=== PATIENT | male | born 1985 | race Caucasian/White ===

== ENCOUNTER 2022-11-26 21:12 | Observation (INO) ==
[2022-11-26] MEDS ORDERED: SODIUM CHLORIDE 0.9% 1000ML 1,000 ML IV SCH (21:30)
[2022-11-26 22:05] LABS: Basophils # (auto) 0.04 K/uL (0-0.2); Basophils % (auto) 0.5 %; Eosinophils # (auto) 0.06 K/uL (0-0.50); Eosinophils % (auto) 0.8 %; Hematocrit (blood only) 48.4 % (42.0-52.0); Hemoglobin 16.6 g/dl (14.0-18.0); Immature Granulocytes # (auto) 0.15 K/uL (0.01-0.20); Lymphocytes # (auto) 0.63 K/uL (1.2-3.4); Lymphocytes % (auto) 8.6 %; Mean Corpuscular Hemoglobin 31.2 pg (25.0-34.0); Mean Corpuscular Hgb Conc 34.3 g/dL (32.0-36.0); Mean Platelet Volume 9.9 fL (9.4-12.4); Monocytes # (auto) 0.66 K/uL (0.11-0.59); Neutrophils % (auto) 79.1 %; Platelet Count 218 K/uL (130-400); RDW Coefficient of Variation 12.2 % (11.5-14.5); RDW Standard Deviation 40.4 fL (36.4-46.3); Red Blood Count 5.32 M/uL (4.70-6.10); White Blood Count 7.34 K/ul (4.8-10.8)
[2022-11-26 22:22] LABS: Monotest Negative (Negative)
[2022-11-26 22:24] LABS: Albumin Globulin Ratio 1.1 (0.9-2); Albumin Level 3.9 gm/dl (3.4-5.0); C Reactive Protein 9.96 mg/dl (0-0.5); Calcium 8.3 mg/dl (8.6-10.3); Creatinine Clr Calc Pharmacy 110.1 ml/min; Est GFR (African American) 89.6 ml/min; Est GFR (Non-African American) 77.3 ml/min; Globulin 3.7 gm/dl (2.5-4.0); Magnesium 1.8 mg/dl (1.7-2.4); Total Protein 7.6 gm/dl (6.0-8.3)
[2022-11-26 22:26] LABS: Acetaminophen < 3 ug/ml (10-30); Salicylate < 3.0 mg/dl (3.0-30)
[2022-11-26 22:39] LABS: Amphetamines+Metham, Urine Neg (Neg); Barbiturates, Urine Neg (Neg); Benzodiazepine, Urine Neg (Neg); Cocaine, Urine Neg (Neg); MDMA (Ecstacy), Urine Neg (Neg); Methadone, Urine Neg (Neg); Opiate, Urine Neg (Neg); Phencyclidine, Urine Neg (Neg)
[2022-11-26] MEDS ORDERED: OPTIRAY 320 100ml IV ONE (22:43)
[2022-11-26 22:46] LABS: INR 1.1 (0.9-1.1); Lyme Ab IgG w/WB Rflx Negative (Negative); Partial Thromboplastin Time 29.6 Seconds (21.0-31.0); Prothrombin Time 11.9 Seconds (9.0-12.0)
[2022-11-26 22:57] LABS: Lyme Ab IgM w/WB Rflx Positive (Negative)
--- NOTE | 2022-11-26 23:01 | CT Scan Report ---
CT SCAN OF THE ABDOMEN AND PELVIS WITH IV CONTRAST CLINICAL HISTORY: Elevated hepatic transaminases. Jaundice. COMPARISON STUDY: No priors. TECHNIQUE: Following the IV administration of 95 cc of Optiray 320, CT scan of the abdomen and pelvi s is performed from the lung bases to the proximal femora. Images are reviewed in the axial, sagittal , and coronal planes. IV contrast was administered without complication. A dose lowering technique wa s utilized adhering to the principles of ALARA. CT DOSE: 1605.89 mGy.cm FINDINGS: Lung bases: The heart is normal in size and without pericardial effusion. The lung bases are clear. Liver: The contrast-enhanced liver is enlarged and heterogeneous, measuring 24.8 cm in length. Questi on mild nodularity of the hepatic surface contour. There is no intrahepatic biliary ductal dilatation . The hepatic veins and portal veins are patent. Gallbladder: Unremarkable. Spleen: The spleen is enlarged, measuring 19.7 cm in length. Pancreas: Unremarkable. Adrenal glands: Unremarkable. Kidneys: The contrast enhanced kidneys are normal in size and without hydronephrosis. The kidneys enh ance symmetrically. Abdominal vasculature: The abdominal aorta is normal in course and caliber. Bowel: There is no bowel obstruction. The appendix is not identified and reported surgically absent. Peritoneum: There is no intraperitoneal free air or abdominal ascites. There is a fat-containing umbi lical hernia. Lymphadenopathy: Prominent lymph nodes in the viviana hepatis are likely reactive. Pelvic viscera: The bladder, prostate, and seminal vesicles are normal as visualized. Skeletal structures: There are bilateral pars defects at L5 with 11 mm of anterolisthesis at L5-S1. M ild lumbosacral spondylosis is observed. No lytic or blastic lesions are seen. Soft tissues: Soft tissue induration overlies the gluteus sarita muscle bilaterally. IMPRESSION: 1. The liver is enlarged and heterogeneous. Mild nodularity of the surface contour suggests early mor phologic change of cirrhosis. 2. Splenomegaly. 3. There is no intra or extrahepatic biliary ductal dilatation 4. Soft tissue induration overlies the gluteus sarita muscle bilaterally. This could represent contu sions or possibly changes related to prior subacute injections. Correlate clinically. 5. Additional findings as above. ACT 112: Negative or not required by law. Electronically signed by: Kendall Diego M.D. 11/26/2022 10:59 PM
[2022-11-26 23:26] LABS: Appearance Urine Clear (Clear); Bacteria Urine Automated Negative (Negative); Blood Urine Negative (Negative); Color Urine Dark Yellow; Epithelial Cell Urine Auto 0-5 /lpf (0-5); Glucose Urine UA Negative (Negative); Ketones Urine 2+ (Negative); Leukocyte Esterase Urine Trace (Negative); Nitrite Urine Positive (Negative); Protein Urine 1+ (Negative); RBC Urine Automated 0-4 /hpf (0-4); Specific Gravity Urine 1.023 (1.000-1.030); Urobilinogen Urine Positive (Negative); pH Urine 5.5 (4.5-7.5)
[2022-11-26 23:34] LABS: Bilirubin Urine 2+ (Negative)
[2022-11-27] MEDS ORDERED: ACETAMINOPHEN 325 MG TAB PO STA (00:25)
[2022-11-27] MEDS ORDERED: DOXYCYCLINE HYCLATE 100 MG in DEXTROSE 5% 100 ML IV STA (00:25)
[2022-11-27] MEDS ORDERED: CEFEPIME 2,000 MG/20 ML VIAL IV STA (00:27)
[2022-11-27] MEDS ORDERED: MAGNESIUM SULFATE / D5W 1 GM/100 ML BAG IV STA (00:33)
--- NOTE | 2022-11-27 00:51 | Emergency Department Note ---
Impression & Plan Fever of unknown origin, Rhabdomyolysis, Transaminitis, Hyperbilirubinemia ED Provider Note CHIEF COMPLAINT: Elevated liver enzymes, yellow skin, fever HISTORY OF PRESENT ILLNESS: This 37-year-old male patient presents to the emergency department via private vehicle, by for evaluation of elevated liver enzymes, yellow skin, and fever. The patient states that 3 days ago, he had a generalized headache which was worse with coughing and sneezing. He states he was experiencing occasional lightheadedness and dizziness. 2 days ago, he noticed some rust colored urine which has persisted. He denies any back pain or urinary symptoms such as dysuria, urinary frequency, urinary hesitancy. The patient states he has been feeling very fatigued and sleeping more than usual. He denies any shortness of breath or chest pain, but states he noticed that his eyes were somewhat yellow over the past few days. The patient states he has had a pain up under his left rib for several weeks and was seen by his primary care provider about a month ago for the pain with no diagnosis. The patient states today, he was at urgent care and told his bilirubin was elevated, his transaminases were elevated, and he was told he had a left-sided kidney stone. The patient does admit to working out a lot. He states he works out very hard and takes "a lot of supplements". The patient states he has recently increased his weights. He denies any specific body pains or aches. He denies any nausea or vomiting. No vision changes, itchiness, weight loss. Patient denies excessive alcohol use. He states he does see a very heavily red meat diet REVIEW OF SYSTEMS: A 10 system review of systems was performed with positives and pertinent negatives listed in the history of present illness. All other systems were reviewed and are negative. ALLERGIES: Penicillin PHYSICAL EXAM: VITALS: Vitals are noted on the nurse's note and reviewed by myself. Vital signs stable. GENERAL: This is a 37-year-old male, in no acute distress, nondiaphoretic, well- developed well-nourished. SKIN: The skin was without rashes, erythema, edema, or bruising. There is no tenting of the skin. Capillary refill less than 2 seconds. HEAD: Normocephalic atraumatic. EYES: Pupils equal round and reactive to light and accommodation. Conjunctivae without injection. There is scleral icterus. Extraocular movements intact. NOSE: Patent, turbinates without inflammation or discharge. No sinus tenderness. MOUTH: Mucous membranes moist. Tonsils are not enlarged. Pharynx without erythema or exudate. Uvula midline. Airway patent. Tongue does not deviate. NECK: Supple without nuchal rigidity. No lymphadenopathy. No thyromegaly. Cervical spine is nontender. No JVD. HEART: Regular rate and rhythm without murmurs gallops or rubs. LUNGS: Clear to auscultation bilaterally without wheezes, rales or rhonchi. No retractions or accessory muscle use. ABDOMEN: Positive bowel sounds x 4. Left upper quadrant tenderness to palpation. Abdomen is otherwise soft, nontender, without masses or organomegaly. Guerin sign negative. No guarding or rebound tenderness. MUSCULOSKELETAL: No muscle atrophy, erythema, or edema noted. Full range of motion without joint tenderness in all extremities. No tenderness to palpation. Normal gait. Strength 5/5 throughout. NEURO: Patient was alert and oriented to person place and time. No focal neurological deficits. EKG, per my interpretation: Sinus tachycardia with a ventricular rate of [address] elevation or depression. No T wave inversion. 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 The monitor showed a sinus tachycardia at a ventricular rate of 106 bpm, per my interpretation. Chest x-ray. Findings: A chest x-ray was performed and revealed no pneumothorax, effusion, infiltrate, pulmonary edema, free air under the diaphragm, or wide mediastinum, per my interpretation EMERGENCY DEPARTMENT COURSE: The patient was seen and evaluated as above. IV access obtained, labs drawn. Labs reviewed by myself. No significant leukocytosis, anemia, thrombocytopenia. ESR elevated at 32. INR 1.1. Renal function without significant abnormality. Creatinine 1.18. Hepatic function with elevated transaminases, AST 196, ALT 374. Total bilirubin was elevated at 5. Total CK was elevated at 527. C-reactive protein elevated 9.96. BNP 82. Lipase 20. TSH 2.348. Urinalysis concerning for positive nitrites, bilirubin, urobilinogen, leukocyte esterase. Urine drug screen negative. Tylenol level negative. Alcohol negative. Lyme disease testing was positive for Lyme IgM. COVID-19 testing negative. Monoscreen negative. Chest x-ray and EKG completed as above. I discussed findings with the patient at bedside. I am concerned for rhabdomyolysis, transaminitis, and elevated bilirubin. CT imaging was performed and was concerning for early cirrhosis, enlarged spleen as well as indurated area on the gluteal regions bilaterally. I did examine this region and did not note any erythema, induration, or obvious etiology of his symptoms. [facility] He was hydrated in the emergency department with IV fluids. Please see hospitalist dictation regarding ongoing management care of this patient. Differential diagnosis includes cirrhosis, hepatic failure, splenomegaly, mono, viral infection, hepatitis, overdose, dehydration, rhabdomyolysis, cardiac etiology, malignancy, among others I attest that I have personally reviewed the patient's current medication list. Patient was found to have normal blood pressure on screening and does not require follow-up. The chart was completed utilizing [employer] Speech voice recognition software. Grammatical errors, random word insertions, pronoun errors, and incomplete sente nces are an occasional consequence of this system due to software limitations, ambient noise, and hardware issues. Any formal questions or concerns about the content, text, or information contained within the body of this dictation should be directly addressed to the provider for clarification. 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 Beliefs That Will Affect Care: None Current Living Situation: Spouse Current Living Situation Comment: Lives at home with and daughters Feels Safe at Home: Yes Safety Concerns: Feels Safe At This Time Assistive Devices: None Allergies Allergies Allergy/AdvReac Type Severity Reaction Status Date / Time Penicillins Allergy Intermediate Hives Verified 11/26/22 23:39 Home Meds Home Medications Medication Instructions Recorded Confirmed Optimized Folate 1,700 mcg PO DAILY 11/26/22 11/26/22 atomoxetine 18 mg capsule 18 mg PO DAILY 11/26/22 11/26/22 buspirone 10 mg tablet 10 mg PO BID PRN Anxiety 11/26/22 11/26/22 famotidine 20 mg tablet 40 mg PO DAILY PRN 11/26/22 11/26/22 HEARTBURN/INDIGESTION lysine 500 mg tablet 500 mg PO DAILY 11/26/22 11/26/22 pantoprazole 40 mg tablet,delayed 40 mg PO DAILY 11/26/22 11/26/22 release tamsulosin 0.4 mg capsule 0.4 mg PO DAILY 11/26/22 11/26/22 temazepam 30 mg capsule 30 mg PO HS 11/26/22 11/26/22 zolpidem 10 mg tablet 10 mg PO HS 11/26/22 11/26/22 Results & Data (ED) Vital Signs Vital Signs - 24 hr 11/26/22 21:15 11/26/22 22:07 11/26/22 22:08 Temperature 38.4 C H Temperature Source Oral Pulse Rate 119 H 113 H 116 H Pulse Rate from SpO2 Sensor 115 H Respiratory Rate 18 32 H Blood Pressure 124/80 Blood Pressure Mean 94 Pulse Oximetry 96 98 Oxygen Delivery Method Room Air Sepsis Recent Fever Within 48 Hours Yes Sepsis New/Unexplained Change in Mental Status No Sepsis Action Taken by Nursing No Action Required 11/26/22 22:30 11/26/22 22:30 11/26/22 23:00 Temperature Temperature Source Pulse Rate 117 H Pulse Rate from SpO2 Sensor 117 H Respiratory Rate 27 H Blood Pressure 141/82 H 140/90 Blood Pressure Mean 101 106 Pulse Oximetry 99 Oxygen Delivery Method Sepsis Recent Fever Within 48 Hours Sepsis New/Unexplained Change in Mental Status Sepsis Action Taken by Nursing 11/26/22 23:00 11/26/22 23:59 Temperature Temperature Source Pulse Rate 111 H 114 H Pulse Rate from SpO2 Sensor 111 H Respiratory Rate 30 H 20 Blood Pressure 128/72 Blood Pressure Mean 90 Pulse Oximetry 98 97 Oxygen Delivery Method Room Air Sepsis Recent Fever Within 48 Hours Sepsis New/Unexplained Change in Mental Status Sepsis Action Taken by Nursing Laboratory Data 11/26/22 21:45 11/26/22 21:45 Lab Results 11/26/22 11/26/22 11/26/22 Range/Units 21:45 21:45 21:45 WBC 7.34 (4.8-10.8) K/ul RBC 5.32 (4.70-6.10) M/uL Hgb 16.6 (14.0-18.0) g/dl Hct 48.4 (42.0-52.0) % MCV 91.0 (80.0-100.0) fL MCH 31.2 (25.0-34.0) pg MCHC 34.3 (32.0-36.0) g/dL RDW Std Deviation 40.4 (36.4-46.3) fL RDW Coeff of Marilee 12.2 (11.5-14.5) % Plt Count 218 (130-400) K/uL MPV 9.9 (9.4-12.4) fL Immature Gran % (Auto) 2.0 % Neut % (Auto) 79.1 % Lymph % (Auto) 8.6 % [place] % (Auto) 9.0 % Eos % (Auto) 0.8 % Baso % (Auto) 0.5 % Neut # (Auto) 5.80 (1.40-6.50) K/uL Lymph # (Auto) 0.63 L (1.2-3.4) K/uL [place] # (Auto) 0.66 H (0.11-0.59) K/uL Eos # (Auto) 0.06 (0-0.50) K/uL Baso # (Auto) 0.04 (0-0.2) K/uL Immature Gran # (Auto) 0.15 (0.01-0.20) K/uL ESR (0-15) mm/hr PT 11.9 (9.0-12.0) Seconds INR 1.1 (0.9-1.1) APTT 29.6 (21.0-31.0) Seconds PTT Ratio 1.0 Sodium (136-145) mmol/L Potassium (3.5-5.1) mmol/L Chloride (98-107) mmol/L Carbon Dioxide (21-32) mmol/L Anion Gap (3-11) BUN (6-23) mg/dl Creatinine (0.6-1.4) mg/dl Est Cr Clr Drug Dosing ml/min Est GFR ( Amer) ml/min Est GFR (Non-Af Amer) ml/min BUN/Creatinine Ratio (10-20) Glucose (70-99(Fasting)) mg/dl Osmolality (280-300) mOsm/kg Lactate (0.4-2.0) mmol/L Calcium (8.6-10.3) mg/dl Magnesium (1.7-2.4) mg/dl Total Bilirubin (0.2-1.0) mg/dl AST (13-39) U/L ALT (7-52) U/L Alkaline Phosphatase (34-104) U/L Total Creatine Kinase (30-223) U/L C-Reactive Protein (0-0.5) mg/dl B-Natriuretic Peptide (0-100) pg/ml Total Protein (6.0-8.3) gm/dl Albumin (3.4-5.0) gm/dl Globulin (2.5-4.0) gm/dl Albumin/Globulin Ratio (0.9-2) Lipase (11-82) U/L TSH (0.300-4.500) uIu/ml Urine Color Urine Appearance (Clear) Urine pH (4.5-7.5) Ur Specific [place] (1.000-1.030) Urine Protein (Negative) Urine Glucose (UA) (Negative) Urine Ketones (Negative) Urine Blood (Negative) Urine Nitrite (Negative) Urine Bilirubin (Negative) Urine Urobilinogen (Negative) Ur Leukocyte Esterase (Negative) Urine WBC (Auto) (0-5) /hpf Urine RBC (Auto) (0-4) /hpf U Hyaline Cast (Auto) (0-5) /lpf U Epithel Cells (Auto) (0-5) /lpf Urine Bacteria (Auto) (Negative) Urine Osmolality (500-800) mOsm/kg Ur Random Sodium mmol/L Salicylates (3.0-30) mg/dl Urine Opiates Screen (Neg) Ur Methadone, Qual (Neg) Acetaminophen (10-30) ug/ml Urine Barbiturates (Neg) Ur Phencyclidine (PCP) (Neg) U Amphetamin/Meth Scrn (Neg) MDMA (Ecstasy) Screen (Neg) U Benzodiazepines Scrn (Neg) Ur Cocaine Metabolite (Neg) U Marijuana (THC) Screen (Neg) Ethyl Alcohol mg/dL (<10.0) mg/dl Anaplasma Smear See Comment Lyme Disease IgG Ab Negative (Negative) Lyme Disease IgM Ab Positive A (Negative) Monoscreen Negative (Negative) SARS-CoV-2, RNA, NAAT (NEGATIVE) 11/26/22 11/26/22 11/26/22 Range/Units 21:45 21:45 21:45 WBC (4.8-10.8) K/ul RBC (4.70-6.10) M/uL Hgb (14.0-18.0) g/dl Hct (42.0-52.0) % MCV (80.0-100.0) fL MCH (25.0-34.0) pg MCHC (32.0-36.0) g/dL RDW Std Deviation (36.4-46.3) fL RDW Coeff of Marilee (11.5-14.5) % Plt Count (130-400) K/uL MPV (9.4-12.4) fL Immature Gran % (Auto) % Neut % (Auto) % Lymph % (Auto) % [place] % (Auto) % Eos % (Auto) % Baso % (Auto) % Neut # (Auto) (1.40-6.50) K/uL Lymph # (Auto) (1.2-3.4) K/uL [place] # (Auto) (0.11-0.59) K/uL Eos # (Auto) (0-0.50) K/uL Baso # (Auto) (0-0.2) K/uL Immature Gran # (Auto) (0.01-0.20) K/uL ESR 32 H (0-15) mm/hr PT (9.0-12.0) Seconds INR (0.9-1.1) APTT (21.0-31.0) Seconds PTT Ratio Sodium 130 L (136-145) mmol/L Potassium 4.0 (3.5-5.1) mmol/L Chloride 94 L (98-107) mmol/L Carbon Dioxide 27 (21-32) mmol/L Anion Gap 9 (3-11) BUN 13 (6-23) mg/dl Creatinine 1.18 (0.6-1.4) mg/dl Est Cr Clr Drug Dosing 110.1 ml/min Est GFR ( Amer) 89.6 ml/min Est GFR (Non-Af Amer) 77.3 ml/min BUN/Creatinine Ratio 11.0 (10-20) Glucose 90 (70-99(Fasting)) mg/dl Osmolality (280-300) mOsm/kg Lactate (0.4-2.0) mmol/L Calcium 8.3 L (8.6-10.3) mg/dl Magnesium 1.8 (1.7-2.4) mg/dl Total Bilirubin 5.0 H (0.2-1.0) mg/dl AST 196 H (13-39) U/L ALT 374 H (7-52) U/L Alkaline Phosphatase 104 (34-104) U/L Total Creatine Kinase 527 H (30-223) U/L C-Reactive Protein 9.96 H (0-0.5) mg/dl B-Natriuretic Peptide (0-100) pg/ml Total Protein 7.6 (6.0-8.3) gm/dl Albumin 3.9 (3.4-5.0) gm/dl Globulin 3.7 (2.5-4.0) gm/dl Albumin/Globulin Ratio 1.1 (0.9-2) Lipase (11-82) U/L TSH (0.300-4.500) uIu/ml Urine Color Urine Appearance (Clear) Urine pH (4.5-7.5) Ur Specific [place] (1.000-1.030) Urine Protein (Negative) Urine Glucose (UA) (Negative) Urine Ketones (Negative) Urine Blood (Negative) Urine Nitrite (Negative) Urine Bilirubin (Negative) Urine Urobilinogen (Negative) Ur Leukocyte Esterase (Negative) Urine WBC (Auto) (0-5) /hpf Urine RBC (Auto) (0-4) /hpf U Hyaline Cast (Auto) (0-5) /lpf U Epithel Cells (Auto) (0-5) /lpf Urine Bacteria (Auto) (Negative) Urine Osmolality (500-800) mOsm/kg Ur Random Sodium mmol/L Salicylates < 3.0 L (3.0-30) mg/dl Urine Opiates Screen (Neg) Ur Methadone, Qual (Neg) Acetaminophen < 3 L (10-30) ug/ml Urine Barbiturates (Neg) Ur Phencyclidine (PCP) (Neg) U Amphetamin/Meth Scrn (Neg) MDMA (Ecstasy) Screen (Neg) U Benzodiazepines Scrn (Neg) Ur Cocaine Metabolite (Neg) U Marijuana (THC) Screen (Neg) Ethyl Alcohol mg/dL (<10.0) mg/dl Anaplasma Smear Lyme Disease IgG Ab (Negative) Lyme Disease IgM Ab (Negative) Monoscreen (Negative) SARS-CoV-2, RNA, NAAT (NEGATIVE) 11/26/22 11/26/22 11/26/22 Range/Units 21:45 21:45 22:01 WBC (4.8-10.8) K/ul RBC (4.70-6.10) M/uL Hgb (14.0-18.0) g/dl Hct (42.0-52.0) % MCV (80.0-100.0) fL MCH (25.0-34.0) pg MCHC (32.0-36.0) g/dL RDW Std Deviation (36.4-46.3) fL RDW Coeff of Marilee (11.5-14.5) % Plt Count (130-400) K/uL MPV (9.4-12.4) fL Immature Gran % (Auto) % Neut % (Auto) % Lymph % (Auto) % [place] % (Auto) % Eos % (Auto) % Baso % (Auto) % Neut # (Auto) (1.40-6.50) K/uL Lymph # (Auto) (1.2-3.4) K/uL [place] # (Auto) (0.11-0.59) K/uL Eos # (Auto) (0-0.50) K/uL Baso # (Auto) (0-0.2) K/uL Immature Gran # (Auto) (0.01-0.20) K/uL ESR (0-15) mm/hr PT (9.0-12.0) Seconds INR (0.9-1.1) APTT (21.0-31.0) Seconds PTT Ratio Sodium (136-145) mmol/L Potassium (3.5-5.1) mmol/L Chloride (98-107) mmol/L Carbon Dioxide (21-32) mmol/L Anion Gap (3-11) BUN (6-23) mg/dl Creatinine (0.6-1.4) mg/dl Est Cr Clr Drug Dosing ml/min Est GFR ( Amer) ml/min Est GFR (Non-Af Amer) ml/min BUN/Creatinine Ratio (10-20) Glucose (70-99(Fasting)) mg/dl Osmolality (280-300) mOsm/kg Lactate 1.1 (0.4-2.0) mmol/L Calcium (8.6-10.3) mg/dl Magnesium (1.7-2.4) mg/dl Total Bilirubin (0.2-1.0) mg/dl AST (13-39) U/L ALT (7-52) U/L Alkaline Phosphatase (34-104) U/L Total Creatine Kinase (30-223) U/L C-Reactive Protein (0-0.5) mg/dl B-Natriuretic Peptide (0-100) pg/ml Total Protein (6.0-8.3) gm/dl Albumin (3.4-5.0) gm/dl Globulin (2.5-4.0) gm/dl Albumin/Globulin Ratio (0.9-2) Lipase (11-82) U/L TSH (0.300-4.500) uIu/ml Urine Color Urine Appearance (Clear) Urine pH (4.5-7.5) Ur Specific [place] (1.000-1.030) Urine Protein (Negative) Urine Glucose (UA) (Negative) Urine Ketones (Negative) Urine Blood (Negative) Urine Nitrite (Negative) Urine Bilirubin (Negative) Urine Urobilinogen (Negative) Ur Leukocyte Esterase (Negative) Urine WBC (Auto) (0-5) /hpf Urine RBC (Auto) (0-4) /hpf U Hyaline Cast (Auto) (0-5) /lpf U Epithel Cells (Auto) (0-5) /lpf Urine Bacteria (Auto) (Negative) Urine Osmolality (500-800) mOsm/kg Ur Random Sodium mmol/L Salicylates (3.0-30) mg/dl Urine Opiates Screen Neg (Neg) Ur Methadone, Qual Neg (Neg) Acetaminophen (10-30) ug/ml Urine Barbiturates Neg (Neg) Ur Phencyclidine (PCP) Neg (Neg) U Amphetamin/Meth Scrn Neg (Neg) MDMA (Ecstasy) Screen Neg (Neg) U Benzodiazepines Scrn Neg (Neg) Ur Cocaine Metabolite Neg (Neg) U Marijuana (THC) Screen Neg (Neg) Ethyl Alcohol mg/dL < 10.0 (<10.0) mg/dl Anaplasma Smear Lyme Disease IgG Ab (Negative) Lyme Disease IgM Ab (Negative) Monoscreen (Negative) SARS-CoV-2, RNA, NAAT (NEGATIVE) 11/26/22 11/26/22 11/26/22 Range/Units 22:01 22:01 22:01 WBC (4.8-10.8) K/ul RBC (4.70-6.10) M/uL Hgb (14.0-18.0) g/dl Hct (42.0-52.0) % MCV (80.0-100.0) fL MCH (25.0-34.0) pg MCHC (32.0-36.0) g/dL RDW Std Deviation (36.4-46.3) fL RDW Coeff of Marilee (11.5-14.5) % Plt Count (130-400) K/uL MPV (9.4-12.4) fL Immature Gran % (Auto) % Neut % (Auto) % Lymph % (Auto) % [place] % (Auto) % Eos % (Auto) % Baso % (Auto) % Neut # (Auto) (1.40-6.50) K/uL Lymph # (Auto) (1.2-3.4) K/uL [place] # (Auto) (0.11-0.59) K/uL Eos # (Auto) (0-0.50) K/uL Baso # (Auto) (0-0.2) K/uL Immature Gran # (Auto) (0.01-0.20) K/uL ESR (0-15) mm/hr PT (9.0-12.0) Seconds INR (0.9-1.1) APTT (21.0-31.0) Seconds PTT Ratio Sodium (136-145) mmol/L Potassium (3.5-5.1) mmol/L Chloride (98-107) mmol/L Carbon Dioxide (21-32) mmol/L Anion Gap (3-11) BUN (6-23) mg/dl Creatinine (0.6-1.4) mg/dl Est Cr Clr Drug Dosing ml/min Est GFR ( Amer) ml/min Est GFR (Non-Af Amer) ml/min BUN/Creatinine Ratio (10-20) Glucose (70-99(Fasting)) mg/dl Osmolality (280-300) mOsm/kg Lactate (0.4-2.0) mmol/L Calcium (8.6-10.3) mg/dl Magnesium (1.7-2.4) mg/dl Total Bilirubin (0.2-1.0) mg/dl AST (13-39) U/L ALT (7-52) U/L Alkaline Phosphatase (34-104) U/L Total Creatine Kinase (30-223) U/L C-Reactive Protein (0-0.5) mg/dl B-Natriuretic Peptide (0-100) pg/ml Total Protein (6.0-8.3) gm/dl Albumin (3.4-5.0) gm/dl Globulin (2.5-4.0) gm/dl Albumin/Globulin Ratio (0.9-2) Lipase (11-82) U/L TSH (0.300-4.500) uIu/ml Urine Color Dark Yellow Urine Appearance Clear (Clear) Urine pH 5.5 (4.5-7.5) Ur Specific [place] 1.023 (1.000-1.030) Urine Protein 1+ H (Negative) Urine Glucose (UA) Negative (Negative) Urine Ketones 2+ H (Negative) Urine Blood Negative (Negative) Urine Nitrite Positive A (Negative) Urine Bilirubin 2+ H (Negative) Urine Urobilinogen Positive H (Negative) Ur Leukocyte Esterase Trace H (Negative) Urine WBC (Auto) 1-5 (0-5) /hpf Urine RBC (Auto) 0-4 (0-4) /hpf U Hyaline Cast (Auto) 1-5 (0-5) /lpf U Epithel Cells (Auto) 0-5 (0-5) /lpf Urine Bacteria (Auto) Negative (Negative) Urine Osmolality 731 (500-800) mOsm/kg Ur Random Sodium 10 mmol/L Salicylates (3.0-30) mg/dl Urine Opiates Screen (Neg) Ur Methadone, Qual (Neg) Acetaminophen (10-30) ug/ml Urine Barbiturates (Neg) Ur Phencyclidine (PCP) (Neg) U Amphetamin/Meth Scrn (Neg) MDMA (Ecstasy) Screen (Neg) U Benzodiazepines Scrn (Neg) Ur Cocaine Metabolite (Neg) U Marijuana (THC) Screen (Neg) Ethyl Alcohol mg/dL (<10.0) mg/dl Anaplasma Smear Lyme Disease IgG Ab (Negative) Lyme Disease IgM Ab (Negative) Monoscreen (Negative) SARS-CoV-2, RNA, NAAT (NEGATIVE) 11/26/22 11/27/22 11/27/22 Range/Units 22:19 00:15 00:42 WBC (4.8-10.8) K/ul RBC (4.70-6.10) M/uL Hgb (14.0-18.0) g/dl Hct (42.0-52.0) % MCV (80.0-100.0) fL MCH (25.0-34.0) pg MCHC (32.0-36.0) g/dL RDW Std Deviation (36.4-46.3) fL RDW Coeff of Marilee (11.5-14.5) % Plt Count (130-400) K/uL MPV (9.4-12.4) fL Immature Gran % (Auto) % Neut % (Auto) % Lymph % (Auto) % [place] % (Auto) % Eos % (Auto) % Baso % (Auto) % Neut # (Auto) (1.40-6.50) K/uL Lymph # (Auto) (1.2-3.4) K/uL [place] # (Auto) (0.11-0.59) K/uL Eos # (Auto) (0-0.50) K/uL Baso # (Auto) (0-0.2) K/uL Immature Gran # (Auto) (0.01-0.20) K/uL ESR (0-15) mm/hr PT (9.0-12.0) Seconds INR (0.9-1.1) APTT (21.0-31.0) Seconds PTT Ratio Sodium (136-145) mmol/L Potassium (3.5-5.1) mmol/L Chloride (98-107) mmol/L Carbon Dioxide (21-32) mmol/L Anion Gap (3-11) BUN (6-23) mg/dl Creatinine (0.6-1.4) mg/dl Est Cr Clr Drug Dosing ml/min Est GFR ( Amer) ml/min Est GFR (Non-Af Amer) ml/min BUN/Creatinine Ratio (10-20) Glucose (70-99(Fasting)) mg/dl Osmolality (280-300) mOsm/kg Lactate (0.4-2.0) mmol/L Calcium (8.6-10.3) mg/dl Magnesium (1.7-2.4) mg/dl Total Bilirubin (0.2-1.0) mg/dl AST (13-39) U/L ALT (7-52) U/L Alkaline Phosphatase (34-104) U/L Total Creatine Kinase (30-223) U/L C-Reactive Protein (0-0.5) mg/dl B-Natriuretic Peptide 82 (0-100) pg/ml Total Protein (6.0-8.3) gm/dl Albumin (3.4-5.0) gm/dl Globulin (2.5-4.0) gm/dl Albumin/Globulin Ratio (0.9-2) Lipase (11-82) U/L TSH 2.348 (0.300-4.500) uIu/ml Urine Color Urine Appearance (Clear) Urine pH (4.5-7.5) Ur Specific [place] (1.000-1.030) Urine Protein (Negative) Urine Glucose (UA) (Negative) Urine Ketones (Negative) Urine Blood (Negative) Urine Nitrite (Negative) Urine Bilirubin (Negative) Urine Urobilinogen (Negative) Ur Leukocyte Esterase (Negative) Urine WBC (Auto) (0-5) /hpf Urine RBC (Auto) (0-4) /hpf U Hyaline Cast (Auto) (0-5) /lpf U Epithel Cells (Auto) (0-5) /lpf Urine Bacteria (Auto) (Negative) Urine Osmolality (500-800) mOsm/kg Ur Random Sodium mmol/L Salicylates (3.0-30) mg/dl Urine Opiates Screen (Neg) Ur Methadone, Qual (Neg) Acetaminophen (10-30) ug/ml Urine Barbiturates (Neg) Ur Phencyclidine (PCP) (Neg) U Amphetamin/Meth Scrn (Neg) MDMA (Ecstasy) Screen (Neg) U Benzodiazepines Scrn (Neg) Ur Cocaine Metabolite (Neg) U Marijuana (THC) Screen (Neg) Ethyl Alcohol mg/dL (<10.0) mg/dl Anaplasma Smear Lyme Disease IgG Ab (Negative) Lyme Disease IgM Ab (Negative) Monoscreen (Negative) SARS-CoV-2, RNA, NAAT NEGATIVE (NEGATIVE) 11/27/22 11/27/22 Range/Units 00:42 00:43 WBC (4.8-10.8) K/ul RBC (4.70-6.10) M/uL Hgb (14.0-18.0) g/dl Hct (42.0-52.0) % MCV (80.0-100.0) fL MCH (25.0-34.0) pg MCHC (32.0-36.0) g/dL RDW Std Deviation (36.4-46.3) fL RDW Coeff of Marilee (11.5-14.5) % Plt Count (130-400) K/uL MPV (9.4-12.4) fL Immature Gran % (Auto) % Neut % (Auto) % Lymph % (Auto) % [place] % (Auto) % Eos % (Auto) % Baso % (Auto) % Neut # (Auto) (1.40-6.50) K/uL Lymph # (Auto) (1.2-3.4) K/uL [place] # (Auto) (0.11-0.59) K/uL Eos # (Auto) (0-0.50) K/uL Baso # (Auto) (0-0.2) K/uL Immature Gran # (Auto) (0.01-0.20) K/uL ESR (0-15) mm/hr PT (9.0-12.0) Seconds INR (0.9-1.1) APTT (21.0-31.0) Seconds PTT Ratio Sodium 131 L (136-145) mmol/L Potassium (3.5-5.1) mmol/L Chloride (98-107) mmol/L Carbon Dioxide (21-32) mmol/L Anion Gap (3-11) BUN (6-23) mg/dl Creatinine (0.6-1.4) mg/dl Est Cr Clr Drug Dosing ml/min Est GFR ( Amer) ml/min Est GFR (Non-Af Amer) ml/min BUN/Creatinine Ratio (10-20) Glucose (70-99(Fasting)) mg/dl Osmolality 280 (280-300) mOsm/kg Lactate (0.4-2.0) mmol/L Calcium (8.6-10.3) mg/dl Magnesium (1.7-2.4) mg/dl Total Bilirubin (0.2-1.0) mg/dl AST (13-39) U/L ALT (7-52) U/L Alkaline Phosphatase (34-104) U/L Total Creatine Kinase (30-223) U/L C-Reactive Protein (0-0.5) mg/dl B-Natriuretic Peptide (0-100) pg/ml Total Protein (6.0-8.3) gm/dl Albumin (3.4-5.0) gm/dl Globulin (2.5-4.0) gm/dl Albumin/Globulin Ratio (0.9-2) Lipase 20 (11-82) U/L TSH (0.300-4.500) uIu/ml Urine Color Urine Appearance (Clear) Urine pH (4.5-7.5) Ur Specific [place] (1.000-1.030) Urine Protein (Negative) Urine Glucose (UA) (Negative) Urine Ketones (Negative) Urine Blood (Negative) Urine Nitrite (Negative) Urine Bilirubin (Negative) Urine Urobilinogen (Negative) Ur Leukocyte Esterase (Negative) Urine WBC (Auto) (0-5) /hpf Urine RBC (Auto) (0-4) /hpf U Hyaline Cast (Auto) (0-5) /lpf U Epithel Cells (Auto) (0-5) /lpf Urine Bacteria (Auto) (Negative) Urine Osmolality (500-800) mOsm/kg Ur Random Sodium mmol/L Salicylates (3.0-30) mg/dl Urine Opiates Screen (Neg) Ur Methadone, Qual (Neg) Acetaminophen (10-30) ug/ml Urine Barbiturates (Neg) Ur Phencyclidine (PCP) (Neg) U Amphetamin/Meth Scrn (Neg) MDMA (Ecstasy) Screen (Neg) U Benzodiazepines Scrn (Neg) Ur Cocaine Metabolite (Neg) U Marijuana (THC) Screen (Neg) Ethyl Alcohol mg/dL (<10.0) mg/dl Anaplasma Smear Lyme Disease IgG Ab (Negative) Lyme Disease IgM Ab (Negative) Monoscreen (Negative) SARS-CoV-2, RNA, NAAT (NEGATIVE) Administered Medications Acetaminophen/Codeine Phosphate (Acetaminophen W/Codeine #3 1 Tab) 1 tab PO QID PRN PRN Reason: pain not relieved by tylenol Stop: 12/27/22 03:08 Last Admin: 11/27/22 03:43 Dose: 1 tab Documented By: KARLENE Sodium Chloride (Nss 1000ml) 1,000 mls @ 80 mls/hr IV .[id number] NIEGL Stop: 11/28/22 05:14 Last Admin: 11/27/22 05:05 Dose: 80 mls/hr Documented By: KARLENE Temazepam (Temazepam 15 Mg Capsule) 30 mg PO HS NIGEL Stop: 12/27/22 03:09 Last Admin: 11/27/22 03:43 Dose: 30 mg Documented By: KARLENE Zolpidem Tartrate (Zolpidem Tartrate 10 Mg Tab) 10 mg PO HS PRN PRN Reason: insomnia Stop: 12/27/22 03:09 Last Admin: 11/27/22 03:43 Dose: 10 mg Documented By: KARLENE Discontinued Medications Acetaminophen (Acetaminophen 325 Mg Tab) 325 mg PO NOW STA Stop: 11/27/22 00:26 Last Admin: 11/27/22 00:35 Dose: 325 mg Documented By: DARLEEN Sodium Chloride (Nss 1000ml) 1,000 mls @ 999 mls/hr IV .Q1H1M NIGEL Stop: 11/26/22 22:30 Last Infusion: 11/26/22 23:27 Dose: 0 mls/hr Documented By: Admin: 11/26/22 22:26 Dose: 999 mls/hr Documented By: Magnesium Sulfate/Dextrose (Magnesium Sulfate / D5w) 1 gm in 100 mls @ 50 mls/ hr IV ONE STA Stop: 11/27/22 02:32 Last Infusion: 11/27/22 02:42 Dose: 0 mls/hr Documented By: Admin: 11/27/22 00:37 Dose: 50 mls/hr Documented By: DARLEEN Doxycycline Hyclate 100 mg/ (Dextrose) 110 mls @ 50 mls/hr IV NOW STA Stop: 11/27/22 02:36 Last Infusion: 11/27/22 03:24 Dose: 0 mls/hr Documented By: Admin: 11/27/22 00:58 Dose: 50 mls/hr Documented By: CARIN Cefepime HCl (Maxipime) 2,000 mg in 20 mls @ 5 mls/min IV NOW STA; Protocol Stop: 11/27/22 00:30 Last Admin: 11/27/22 00:35 Dose: 5 mls/min Documented By: DARLEEN Ioversol (Optiray 320 100ml) 95 ml IV ONCE ONE Stop: 11/26/22 22:44 Last Admin: 11/26/22 22:44 Dose: 95 ml Documented By: MARIYA Imaging Data Radiologist's Impression: Abdomen/Pelvis CT 11/26/22 21:25 CT SCAN OF THE ABDOMEN AND PELVIS WITH IV CONTRAST CLINICAL HISTORY: Elevated hepatic transaminases. Jaundice. COMPARISON STUDY: No priors. TECHNIQUE: Following the IV administration of 95 cc of Optiray 320, CT scan of the abdomen and pelvis is performed from the lung bases to the proximal femora. Images are reviewed in the axial, sagittal, and coronal planes. IV contrast was administered without complication. A dose lowering technique was utilized adhering to the principles of ALARA. CT DOSE: 1605.89 mGy.cm FINDINGS: Lung bases: The heart is normal in size and without pericardial effusion. The lung bases are clear. Liver: The contrast-enhanced liver is enlarged and heterogeneous, measuring 24.8 cm in length. Question mild nodularity of the hepatic surface contour. There is no intrahepatic biliary ductal dilatation. The hepatic veins and portal veins are patent. Gallbladder: Unremarkable. Spleen: The spleen is enlarged, measuring 19.7 cm in length. Pancreas: Unremarkable. Adrenal glands: Unremarkable. Kidneys: The contrast enhanced kidneys are normal in size and without hydrone phrosis. The kidneys enhance symmetrically. Abdominal vasculature: The abdominal aorta is normal in course and caliber. Bowel: There is no bowel obstruction. The appendix is not identified and reported surgically absent. Peritoneum: There is no intraperitoneal free air or abdominal ascites. There is a fat-containing umbilical hernia. Lymphadenopathy: Prominent lymph nodes in the viviana hepatis are likely reactive. Pelvic viscera: The bladder, prostate, and seminal vesicles are normal as visualized. Skeletal structures: There are bilateral pars defects at L5 with 11 mm of anterolisthesis at L5-S1. Mild lumbosacral spondylosis is observed. No lytic or blastic lesions are seen. Soft tissues: Soft tissue induration overlies the gluteus sarita muscle bilaterally. IMPRESSION: 1. The liver is enlarged and heterogeneous. Mild nodularity of the surface contour suggests early morphologic change of cirrhosis. 2. Splenomegaly. 3. There is no intra or extrahepatic biliary ductal dilatation 4. Soft tissue induration overlies the gluteus sarita muscle bilaterally. This could represent contusions or possibly changes related to prior subacute injections. Correlate clinically. 5. Additional findings as above. ACT 112: Negative or not required by law. Electronically signed by: Kendall Diego M.D. 11/26/2022 10:59 PM Discharge Plan Visit Data Chief Complaint: Fever Stated Complaint: ELEVATED LIVER ENZYMES, YELLOW SKIN, FEVER ED Provider: Mckinley Kenny ED Midlevel Provider: Rebecca Kingston Discharge Problem: Fever of unknown origin, Rhabdomyolysis, Transaminitis, Hyperbilirubinemia Patient Disposition: Admitted As Inpatient Discharge Instructions Interventions: ED Discharge Assessment Last Done: 11/27/22 02:15
[2022-11-27 01:22] LABS: Sodium 131 mmol/L (136-145)
--- NOTE | 2022-11-27 01:32 | History & Physical Report ---
Date of Service November 27, 2022 Assessment & Plan (1) Sepsis: Plan: Possible sources: Lyme disease Complicated UTI Transaminitis Early cirrhosis possible underlying NAFLD, abnormal LFTs noted from 2020, hx hyperlipidemia/statin noncompliance Multifactorial : Tickborne infection Rhabdomyolysis ? Workout supplements possibly contributory to liver inflammation Hyponatremia secondary to illness ADD/anxiety disorder, at baseline GERD stable on regimen Medical telemetry CS Doxycycline for tickborne infection Cefepime for complicated UTI Follow CPK response to IVF GI consult Re: Abnormal LFTs, new diagnosis cirrhosis work-up Patient requested to review ingredients of workout supplements. Hyponatremia work-up DVT prophylaxis. Lovenox subcu Full code Text document was generated using [employer] voice recognition software. It may contain grammatical or spelling errors. Kindly contact undersigned for clarification of any documentation item in question. History of Present Illness Chief Complaint: Abnormal blood work Primary Care Provider: Sara De La Garza DO History obtained from patient and records. Medical history significant for ADD, anxiety disorder, GERD, hyperlipidemia (statin noncompliance). 1 month history of left upper quadrant pain. Patient seen at PCP's office. Musculoskeletal pain as per PCP note. Outpatient abdominal ultrasound requested to rule out spleen problems as per patient. Last 5 days, patient noted generalized weakness associated with headache, lightheadedness. Poor appetite with rust colored urine noted. Shortness of breath from weakness. Patient denies chest pain. Same left-sided abdominal pain. Possible tick exposure as patient lives in the [facility]. Denies inordinate Tylenol intake. Denies IVDU. No recent overseas travel. Admits to taking health supplements for some time now. Admits to heavy lifting during workouts. Patient seen at urgent care center yesterday. Plain x-ray of the abdomen done which showed possible kidney stone as per patient. Abnormal LFTs noted. Patient directed to ER by outpatient provider. Medical History as above Surgical History : Knee surgeries, appendectomy Family History : Brain cancer, thyroid cancer, COPD, alcoholism Personal/Social history : Non-smoker, occasional EtOH intake, sales work Allergies Allergy/AdvReac Type Severity Reaction Status Date / Time Penicillins Allergy Intermediate Hives Verified 11/26/22 23:39 Home Medications Medication Instructions Recorded Confirmed Type Optimized Folate 1,700 mcg PO DAILY 11/26/22 11/26/22 History atomoxetine 18 mg capsule 18 mg PO DAILY 11/26/22 11/26/22 History buspirone 10 mg tablet 10 mg PO BID PRN Anxiety 11/26/22 11/26/22 History famotidine 20 mg tablet 40 mg PO DAILY PRN 11/26/22 11/26/22 History HEARTBURN/INDIGESTION lysine 500 mg tablet 500 mg PO DAILY 11/26/22 11/26/22 History pantoprazole 40 mg tablet,delayed 40 mg PO DAILY 11/26/22 11/26/22 History release tamsulosin 0.4 mg capsule 0.4 mg PO DAILY 11/26/22 11/26/22 History temazepam 30 mg capsule 30 mg PO HS 11/26/22 11/26/22 History zolpidem 10 mg tablet 10 mg PO HS 11/26/22 11/26/22 History Past Med/Surg History Medical History No pertinent past medical history Social History Smoking Status: Never smoker Hx Alcohol Use: No Hx Substance Use: No Preferred Language: [employer] Supervisor Required: No Beliefs That Will Affect Care: None Current Living Situation: Spouse Current Living Situation Comment: Lives at home with and daughters Feels Safe at Home: Yes Safety Concerns: Feels Safe At This Time Assistive Devices: None Review of Systems Review of Systems: As per HPI, all other systems reviewed and negative Physical Exam Physical Exam: GENERAL: Comfortable, obese, pleasant, no respiratory distress SKIN: Normal color, warm HEENT: Alopecia, [place] palpebral conjunctivae, no ptosis, dry buccal mucosa NECK : Supple, short neck, no tenderness CHEST : CTA, no tenderness HEART : Tachycardic, no obvious murmurs ABDOMEN: Some distention, minimal left-sided tenderness EXTREMITIES : No LE swelling/tenderness, no other conspicuous deformities noted NEUROLOGIC : Coherent, no facial asymmetry, no other gross focality Results & Data Results & Data Vital Signs (Past 12 Hours) Vital Signs Temp Pulse Resp BP Pulse Ox O2 Del Method 11/26/22 23:59 114 H 20 128/72 97 Room Air 11/26/22 23:00 111 H 30 H 98 11/26/22 23:00 140/90 11/26/22 22:30 117 H 27 H 99 11/26/22 22:30 141/82 H 11/26/22 22:08 116 H 32 H 98 11/26/22 22:07 113 H 11/26/22 21:15 38.4 C H 119 H 18 124/80 96 Room Air Laboratory Results Laboratory Results WBC 7.34 K/ul (4.8-10.8) 11/26/22 21:45 RBC 5.32 M/uL (4.70-6.10) 11/26/22 21:45 Hgb 16.6 g/dl (14.0-18.0) 11/26/22 21:45 Hct 48.4 % (42.0-52.0) 11/26/22 21:45 MCV 91.0 fL (80.0-100.0) 11/26/22 21:45 MCH 31.2 pg (25.0-34.0) 11/26/22 21:45 MCHC 34.3 g/dL (32.0-36.0) 11/26/22 21:45 RDW Std Deviation 40.4 fL (36.4-46.3) 11/26/22 21:45 RDW Coeff of Marilee 12.2 % (11.5-14.5) 11/26/22 21:45 Plt Count 218 K/uL (130-400) 11/26/22 21:45 MPV 9.9 fL (9.4-12.4) 11/26/22 21:45 Immature Gran % (Auto) 2.0 % 11/26/22 21:45 Neut % (Auto) 79.1 % 11/26/22 21:45 Lymph % (Auto) 8.6 % 11/26/22 21:45 [place] % (Auto) 9.0 % 11/26/22 21:45 Eos % (Auto) 0.8 % 11/26/22 21:45 Baso % (Auto) 0.5 % 11/26/22 21:45 Neut # (Auto) 5.80 K/uL (1.40-6.50) 11/26/22 21:45 Lymph # (Auto) 0.63 K/uL (1.2-3.4) L 11/26/22 21:45 [place] # (Auto) 0.66 K/uL (0.11-0.59) H 11/26/22 21:45 Eos # (Auto) 0.06 K/uL (0-0.50) 11/26/22 21:45 Baso # (Auto) 0.04 K/uL (0-0.2) 11/26/22 21:45 Immature Gran # (Auto) 0.15 K/uL (0.01-0.20) 11/26/22 21:45 ESR 32 mm/hr (0-15) H 11/26/22 21:45 PT 11.9 Seconds (9.0-12.0) 11/26/22 21:45 INR 1.1 (0.9-1.1) 11/26/22 21:45 APTT 29.6 Seconds (21.0-31.0) 11/26/22 21:45 PTT Ratio 1.0 11/26/22 21:45 Sodium 131 mmol/L (136-145) L 11/27/22 00:43 Potassium 4.0 mmol/L (3.5-5.1) 11/26/22 21:45 Chloride 94 mmol/L (98-107) L 11/26/22 21:45 Carbon Dioxide 27 mmol/L (21-32) 11/26/22 21:45 Anion Gap 9 (3-11) 11/26/22 21:45 BUN 13 mg/dl (6-23) 11/26/22 21:45 Creatinine 1.18 mg/dl (0.6-1.4) 11/26/22 21:45 Est Cr Clr Drug Dosing 110.1 ml/min 11/26/22 21:45 Est GFR ( Amer) 89.6 ml/min 11/26/22 21:45 Est GFR (Non-Af Amer) 77.3 ml/min 11/26/22 21:45 BUN/Creatinine Ratio 11.0 (10-20) 11/26/22 21:45 Glucose 90 mg/dl (70-99(Fasting)) 11/26/22 21:45 Lactate 1.1 mmol/L (0.4-2.0) 11/26/22 21:45 Calcium 8.3 mg/dl (8.6-10.3) L 11/26/22 21:45 Magnesium 1.8 mg/dl (1.7-2.4) 11/26/22 21:45 Total Bilirubin 5.0 mg/dl (0.2-1.0) H 11/26/22 21:45 AST 196 U/L (13-39) H 11/26/22 21:45 ALT 374 U/L (7-52) H 11/26/22 21:45 Alkaline Phosphatase 104 U/L (34-104) 11/26/22 21:45 Total Creatine Kinase 527 U/L (30-223) H 11/26/22 21:45 C-Reactive Protein 9.96 mg/dl (0-0.5) H 11/26/22 21:45 Total Protein 7.6 gm/dl (6.0-8.3) 11/26/22 21:45 Albumin 3.9 gm/dl (3.4-5.0) 11/26/22:45 Globulin 3.7 gm/dl (2.5-4.0) 11/26/22 21:45 Albumin/Globulin Ratio 1.1 (0.9-2) 11/26/22 21:45 Urine Color Dark Yellow 11/26/22 22:01 Urine Appearance Clear (Clear) 11/26/22 22:01 Urine pH 5.5 (4.5-7.5) 11/26/22 22:01 Ur Specific [place] 1.023 (1.000-1.030) 11/26/22 22:01 Urine Protein 1+ (Negative) H 11/26/22 22:01 Urine Glucose (UA) Negative (Negative) 11/26/22 22:01 Urine Ketones 2+ (Negative) H 11/26/22 22:01 Urine Blood Negative (Negative) 11/26/22 22:01 Urine Nitrite Positive (Negative) A 11/26/22 22:01 Urine Bilirubin 2+ (Negative) H 11/26/22 22:01 Urine Urobilinogen Positive (Negative) H 11/26/22 22:01 Ur Leukocyte Esterase Trace (Negative) H 11/26/22 22:01 Urine WBC (Auto) 1-5 /hpf (0-5) 11/26/22 22:01 Urine RBC (Auto) 0-4 /hpf (0-4) 11/26/22 22:01 U Hyaline Cast (Auto) 1-5 /lpf (0-5) 11/26/22 22:01 U Epithel Cells (Auto) 0-5 /lpf (0-5) 11/26/22 22:01 Urine Bacteria (Auto) Negative (Negative) 11/26/22 22:01 Urine Osmolality 731 mOsm/kg (500-800) 11/26/22 22:01 Ur Random Sodium 10 mmol/L 11/26/22 22:01 Salicylates < 3.0 mg/dl (3.0-30) L 11/26/22 21:45 Urine Opiates Screen Neg (Neg) 11/26/22 22:01 Ur Methadone, Qual Neg (Neg) 11/26/22 22:01 Acetaminophen < 3 ug/ml (10-30) L 11/26/22 21:45 Urine Barbiturates Neg (Neg) 11/26/22 22:01 Ur Phencyclidine (PCP) Neg (Neg) 11/26/22 22:01 U Amphetamin/Meth Scrn Neg (Neg) 11/26/22 22:01 MDMA (Ecstasy) Screen Neg (Neg) 11/26/22 22:01 U Benzodiazepines Scrn Neg (Neg) 11/26/22 22:01 Ur Cocaine Metabolite Neg (Neg) 11/26/22 22:01 U Marijuana (THC) Screen Neg (Neg) 11/26/22 22:01 Ethyl Alcohol mg/dL < 10.0 mg/dl (<10.0) 11/26/22 21:45 Anaplasma Smear See Comment 11/26/22 21:45 Lyme Disease IgG Ab Negative (Negative) 11/26/22 21:45 Lyme Disease IgM Ab Positive (Negative) A 11/26/22 21:45 Monoscreen Negative (Negative) 11/26/22 21:45 SARS-CoV-2, RNA, NAAT NEGATIVE (NEGATIVE) 11/27/22 00:15 Impressions Abdomen/Pelvis CT 11/26/22 21:25 CT SCAN OF THE ABDOMEN AND PELVIS WITH IV CONTRAST CLINICAL HISTORY: Elevated hepatic transaminases. Jaundice. COMPARISON STUDY: No priors. TECHNIQUE: Following the IV administration of 95 cc of Optiray 320, CT scan of the abdomen and pelvis is performed from the lung bases to the proximal femora. Images are reviewed in the axial, sagittal, and coronal planes. IV contrast was administered without complication. A dose lowering technique was utilized adhering to the principles of ALARA. CT DOSE: 1605.89 mGy.cm FINDINGS: Lung bases: The heart is normal in size and without pericardial effusion. The lung bases are clear. Liver: The contrast-enhanced liver is enlarged and heterogeneous, measuring 24.8 cm in length. Question mild nodularity of the hepatic surface contour. There is no intrahepatic biliary ductal dilatation. The hepatic veins and portal veins are patent. Gallbladder: Unremarkable. Spleen: The spleen is enlarged, measuring 19.7 cm in length. Pancreas: Unremarkable. Adrenal glands: Unremarkable. Kidneys: The contrast enhanced kidneys are normal in size and without hydronephrosis. The kidneys enhance symmetrically. Abdominal vasculature: The abdominal aorta is normal in course and caliber. Bowel: There is no bowel obstruction. The appendix is not identified and reported surgically absent. Peritoneum: There is no intraperitoneal free air or abdominal ascites. There is a fat-containing umbilical hernia. Lymphadenopathy: Prominent lymph nodes in the viviana hepatis are likely reactive. Pelvic viscera: The bladder, prostate, and seminal vesicles are normal as visualized. Skeletal structures: There are bilateral pars defects at L5 with 11 mm of anterolisthesis at L5-S1. Mild lumbosacral spondylosis is observed. No lytic or blastic lesions are seen. Soft tissues: Soft tissue induration overlies the gluteus sarita muscle bilaterally. IMPRESSION: 1. The liver is enlarged and heterogeneous. Mild nodularity of the surface contour suggests early morphologic change of cirrhosis. 2. Splenomegaly. 3. There is no intra or extrahepatic biliary ductal dilatation 4. Soft tissue induration overlies the gluteus sarita muscle bilaterally. This could represent contusions or possibly changes related to prior subacute injections. Correlate clinically. 5. Additional findings as above. ACT 112: Negative or not required by law. Electronically signed by: Kendall Diego M.D. 11/26/2022 10:59 PM Diagnostic Findings Chest x-ray as per my interpretation no congestion EKG as per my interpretation : Rate 125, sinus tachycardia, LAD, LAFB, LVH, no ischemia
[2022-11-27 01:58] LABS: Lipase 20 U/L (11-82)
[2022-11-27] MEDS ORDERED: oxyCODONE HCL IR 5 MG TAB (IMMEDIATE RELEASE) PO PRN (02:43)
[2022-11-27] MEDS ORDERED: PROMETHAZINE HCL 12.5 MG in SODIUM CHLORIDE 0.9% 50 ML IV PRN (02:43)
[2022-11-27] MEDS ORDERED: ZOLPIDEM TARTRATE 10 MG TAB PO PRN (02:43)
[2022-11-27] MEDS ORDERED: busPIRone 5 MG TAB PO PRN (02:43)
[2022-11-27] MEDS ORDERED: FAMOTIDINE 40 MG TABLET PO PRN (02:43)
[2022-11-27] MEDS ORDERED: ACETAMINOPHEN 325 MG TAB PO PRN (02:43)
[2022-11-27] MEDS ORDERED: ACETAMINOPHEN W/CODEINE #3 1 TAB PO PRN (03:09)
[2022-11-27] MEDS: ZOLPIDEM TARTRATE 10 MG TAB PO PRN ×2 (03:43→21:32)
[2022-11-27] MEDS: TEMAZEPAM 15 MG CAPSULE PO SCH ×2 (03:43→21:32)
[2022-11-27] MEDS: SODIUM CHLORIDE 0.9% 1000ML 1,000 ML IV SCH ×2 (05:05→15:48)
[2022-11-27 07:12] LABS: Basophils # (auto) 0.03 K/uL (0-0.2); Basophils % (auto) 0.4 %; Eosinophils # (auto) 0.06 K/uL (0-0.50); Eosinophils % (auto) 0.9 %; Hematocrit (blood only) 41.3 % (42.0-52.0); Hemoglobin 14.1 g/dl (14.0-18.0); Immature Granulocytes # (auto) 0.14 K/uL (0.01-0.20); Lymphocytes # (auto) 1.04 K/uL (1.2-3.4); Mean Corpuscular Hemoglobin 31.2 pg (25.0-34.0); Mean Corpuscular Hgb Conc 34.1 g/dL (32.0-36.0); Mean Corpuscular Volume 91.4 fL (80.0-100.0); Mean Platelet Volume 9.9 fL (9.4-12.4); Monocytes % (auto) 11.6 %; Neutrophils # (auto) 4.85 K/uL (1.40-6.50); Neutrophils % (auto) 70.1 %; Platelet Count 197 K/uL (130-400); RDW Coefficient of Variation 12.3 % (11.5-14.5); Red Blood Count 4.52 M/uL (4.70-6.10); White Blood Count 6.92 K/ul (4.8-10.8)
[2022-11-27 07:26] LABS: Albumin Level 3.1 gm/dl (3.4-5.0); BUN Creatinine Ratio 10.5 (10-20); Bilirubin,Total 3.7 mg/dl (0.2-1.0); Calcium 7.6 mg/dl (8.6-10.3); Creatinine Clr Calc Pharmacy 121.2 ml/min; Est GFR (African American) 84.3 ml/min; Est GFR (Non-African American) 72.8 ml/min; Potassium 3.8 mmol/L (3.5-5.1); Total Protein 6.1 gm/dl (6.0-8.3)
--- NOTE | 2022-11-27 08:04 | XRay Report ---
XR chest 1V portable HISTORY: hyponatremia COMPARISON: Abdomen and pelvis CT 11/26/2022. FINDINGS: No pneumothorax. No pleural effusions. The cardiac silhouette is top normal in size. There is prominence within the right mediastinal border which could be due to the AP portable technique. Th is is not confirmed on the second view and is therefore likely technical. The lungs are clear. IMPRESSION: No acute process within the chest. ACT 112: Negative or not required by law. Electronically signed by: Mau Perea M.D. 11/27/2022 8:02 AM
[2022-11-27] MEDS: ENOXAPARIN INJ 40 MG/0.4 ML SYR SQ SCH (08:09)
[2022-11-27] MEDS: PANTOprazole 40 MG TAB PO SCH (08:10)
[2022-11-27] MEDS: TAMSULOSIN HCL 0.4 MG CAP PO SCH (08:10)
[2022-11-27] MEDS: CEFEPIME 2,000 MG in SYRINGE 0 ML IV SCH ×2 (08:11→15:45)
[2022-11-27] MEDS ORDERED: ATOMOXETINE 18 MG PO SCH (09:00)
--- NOTE | 2022-11-27 10:42 | Gastrointestinal Consultation ---
Date of Consultation November 27, 2022 Assessment & Plan (1) Transaminitis: He has acute elevation in his liver enzymes that is more than likely related to Lyme if in fact he has it. Hepatitis profile is pending. His liver is enlarged on CT and questionable early nodular changes. His LFT's are falling over his hospitalization and I suspect they will continue to fall. He does not need to be in the hospital due to his elevated LFT's--these can be followed as an outpatient. Work up of chronic liver disease will progress after this acute process has subsided. Curious to see the hepatitis profile when it returns. History of Present Illness Reason for Consultation: hepatitis Attending Physician: Roxanna Wetzel MD History of Present Illness 37 year old man admitted with headaches and weakness. He was found to have elevated LFT's on admission. He says his LFT's have always been elevated as far back as he can remember but only mildly so. He is covered with tattoos but is confident he hasn't gotten any diseases from his tattoos. He works out with heavy weights and has done steroids in the past but it has been years since he had taken any steroids. He drinks only occasionally. He has had a tick bite several months ago and says he had the target rash. His Lyme IgM is positive. Allergies Allergy/AdvReac Type Severity Reaction Status Date / Time Penicillins Allergy Intermediate Hives Verified 11/26/22 23:39 Home Medications Medication Instructions Recorded Confirmed Type Optimized Folate 1,700 mcg PO DAILY 11/26/22 11/26/22 History atomoxetine 18 mg capsule 18 mg PO DAILY 11/26/22 11/26/22 History buspirone 10 mg tablet 10 mg PO BID PRN Anxiety 11/26/22 11/26/22 History famotidine 20 mg tablet 40 mg PO DAILY PRN 11/26/22 11/26/22 History HEARTBURN/INDIGESTION lysine 500 mg tablet 500 mg PO DAILY 11/26/22 11/26/22 History pantoprazole 40 mg tablet,delayed 40 mg PO DAILY 11/26/22 11/26/22 History release tamsulosin 0.4 mg capsule 0.4 mg PO DAILY 11/26/22 11/26/22 History temazepam 30 mg capsule 30 mg PO HS 11/26/22 11/26/22 History zolpidem 10 mg tablet 10 mg PO HS 11/26/22 11/26/22 History Patient History Medical History No pertinent past medical history Social History Smoking Status: Never smoker Hx Alcohol Use: No Hx Substance Use: No Preferred Language: Albanian Senior Marketing Specialist Required: No Beliefs That Will Affect Care: None Current Living Situation: Spouse Current Living Situation Comment: Lives at home with and daughters Feels Safe at Home: Yes Safety Concerns: Feels Safe At This Time Assistive Devices: None Review of Systems Review of Systems: All systems reviewed & are unremarkable except as noted in HPI & below Physical Exam Constitutional: WD/WN, vitals as above no acute distress Eyes: PERRL; sclerae not anicteric ENMT: external ear and nose normal, oropharynx normal Neck: trachea midline, no thyromegaly Respiratory: normal respiratory effort, lungs clear to auscultation Cardiovascular: RRR, no murmur, no edema Gastrointestinal (Abdomen): normal bowel sounds, soft, nontender, no h epatosplenomegaly Musculoskeletal: Extremities: no cyanosis and no clubbing Skin: no rashes, warm and dry multiple tattoos Neurologic: PERRL, EOMI, accommodation nl, no face palsy, no dysarthria Psychiatric: Orientation: alert and oriented x 3 Results & Data Vital Signs (Past 12 Hours) Vital Signs Temp Pulse Pulse Resp BP BP Pulse Ox 11/27/22 07:26 37.0 C 100 H 20 112/74 96 11/27/22 07:33 99 H 11/27/22 05:41 108 H 11/27/22 02:44 37.1 C 106 H 20 115/65 96 11/26/22 23:59 114 H 20 128/72 97 11/26/22 23:00 111 H 30 H 98 11/26/22 23:00 140/90 O2 Del Method 11/27/22 07:26 Room Air 11/27/22 07:33 11/27/22 05:41 11/27/22 02:44 Room Air 11/26/22 23:59 Room Air 11/26/22 23:00 11/26/22 23:00 Laboratory Results 11/27/22 11/27/22 11/27/22 Range/Units 06:39 06:39 00:43 WBC 6.92 (4.8-10.8) K/ul RBC 4.52 L (4.70-6.10) M/uL Hgb 14.1 (14.0-18.0) g/dl Hct 41.3 L (42.0-52.0) % MCV 91.4 (80.0-100.0) fL MCH 31.2 (25.0-34.0) pg MCHC 34.1 (32.0-36.0) g/dL RDW Std Deviation 41.0 (36.4-46.3) fL RDW Coeff of Marilee 12.3 (11.5-14.5) % Plt Count 197 (130-400) K/uL MPV 9.9 (9.4-12.4) fL Immature Gran % (Auto) 2.0 % Neut % (Auto) 70.1 % Lymph % (Auto) 15.0 % Mobile % (Auto) 11.6 % Eos % (Auto) 0.9 % Baso % (Auto) 0.4 % Neut # (Auto) 4.85 (1.40-6.50) K/uL Lymph # (Auto) 1.04 L (1.2-3.4) K/uL Mobile # (Auto) 0.80 H (0.11-0.59) K/uL Eos # (Auto) 0.06 (0-0.50) K/uL Baso # (Auto) 0.03 (0-0.2) K/uL Immature Gran # (Auto) 0.14 (0.01-0.20) K/uL ESR (0-15) mm/hr PT (9.0-12.0) Seconds INR (0.9-1.1) APTT (21.0-31.0) Seconds PTT Ratio Sodium 132 L 131 L (136-145) mmol/L Potassium 3.8 (3.5-5.1) mmol/L Chloride 99 (98-107) mmol/L Carbon Dioxide 27 (21-32) mmol/L Anion Gap 6 (3-11) BUN 13 (6-23) mg/dl Creatinine 1.24 (0.6-1.4) mg/dl Est Cr Clr Drug Dosing 121.2 ml/min Est GFR ( Amer) 84.3 ml/min Est GFR (Non-Af Amer) 72.8 ml/min BUN/Creatinine Ratio 10.5 (10-20) Glucose 95 (70-99(Fasting)) mg/dl Osmolality (280-300) mOsm/kg Lactate (0.4-2.0) mmol/L Calcium 7.6 L (8.6-10.3) mg/dl Magnesium (1.7-2.4) mg/dl Total Bilirubin 3.7 H (0.2-1.0) mg/dl AST 119 H (13-39) U/L ALT 267 H (7-52) U/L Alkaline Phosphatase 85 (34-104) U/L Total Creatine Kinase 331 H (30-223) U/L C-Reactive Protein (0-0.5) mg/dl B-Natriuretic Peptide (0-100) pg/ml Total Protein 6.1 (6.0-8.3) gm/dl Albumin 3.1 L (3.4-5.0) gm/dl Globulin 3.0 (2.5-4.0) gm/dl Albumin/Globulin Ratio 1.0 (0.9-2) Lipase 20 (11-82) U/L TSH (0.300-4.500) uIu/ml Urine Color Urine Appearance (Clear) Urine pH (4.5-7.5) Ur Specific [place] (1.000-1.030) Urine Protein (Negative) Urine Glucose (UA) (Negative) Urine Ketones (Negative) Urine Blood (Negative) Urine Nitrite (Negative) Urine Bilirubin (Negative) Urine Urobilinogen (Negative) Ur Leukocyte Esterase (Negative) Urine WBC (Auto) (0-5) /hpf Urine RBC (Auto) (0-4) /hpf U Hyaline Cast (Auto) (0-5) /lpf U Epithel Cells (Auto) (0-5) /lpf Urine Bacteria (Auto) (Negative) Urine Osmolality (500-800) mOsm/kg Ur Random Sodium mmol/L Salicylates (3.0-30) mg/dl Urine Opiates Screen (Neg) Ur Methadone, Qual (Neg) Acetaminophen (10-30) ug/ml Urine Barbiturates (Neg) Ur Phencyclidine (PCP) (Neg) U Amphetamin/Meth Scrn (Neg) MDMA (Ecstasy) Screen (Neg) U Benzodiazepines Scrn (Neg) Ur Cocaine Metabolite (Neg) U Marijuana (THC) Screen (Neg) Ethyl Alcohol mg/dL (<10.0) mg/dl Anaplasma Smear A. phagocytophilum DNA Lyme Disease IgG Ab (Negative) Lyme IgG (Western Blot) Lyme IgG 18 kDa Band Lyme IgG 23 kDa Band Lyme IgG 28 kDa Band Lyme IgG 30 kDa Band Lyme IgG 39 kDa Band Lyme IgG 41 kDa Band Lyme IgG 45 kDa Band Lyme IgG 58 kDa Band Lyme IgG 66 kDa Band Lyme IgG 93 kDa Band Lyme IgM Ab (WB) Lyme Disease IgM Ab (Negative) Lyme IgM 23 kDa Band Lyme IgM 39 kDa Band Lyme IgM 41 kDa Band Hepatitis A IgM Ab Hep Bs Antigen Hep Bs Ag Confirmation Hep B Core IgM Ab Hepatitis C Ab (EIA) Monoscreen (Negative) SARS-CoV-2, RNA, NAAT (NEGATIVE) 11/27/22 11/27/22 11/27/22 Range/Units 00:42 00:42 00:15 WBC (4.8-10.8) K/ul RBC (4.70-6.10) M/uL Hgb (14.0-18.0) g/dl Hct (42.0-52.0) % MCV (80.0-100.0) fL MCH (25.0-34.0) pg MCHC (32.0-36.0) g/dL RDW Std Deviation (36.4-46.3) fL RDW Coeff of Marilee (11.5-14.5) % Plt Count (130-400) K/uL MPV (9.4-12.4) fL Immature Gran % (Auto) % Neut % (Auto) % Lymph % (Auto) % Mobile % (Auto) % Eos % (Auto) % Baso % (Auto) % Neut # (Auto) (1.40-6.50) K/uL Lymph # (Auto) (1.2-3.4) K/uL Mobile # (Auto) (0.11-0.59) K/uL Eos # (Auto) (0-0.50) K/uL Baso # (Auto) (0-0.2) K/uL Immature Gran # (Auto) (0.01-0.20) K/uL ESR (0-15) mm/hr PT (9.0-12.0) Seconds INR (0.9-1.1) APTT (21.0-31.0) Seconds PTT Ratio Sodium (136-145) mmol/L Potassium (3.5-5.1) mmol/L Chloride (98-107) mmol/L Carbon Dioxide (21-32) mmol/L Anion Gap (3-11) BUN (6-23) mg/dl Creatinine (0.6-1.4) mg/dl Est Cr Clr Drug Dosing ml/min Est GFR ( Amer) ml/min Est GFR (Non-Af Amer) ml/min BUN/Creatinine Ratio (10-20) Glucose (70-99(Fasting)) mg/dl Osmolality 280 (280-300) mOsm/kg Lactate (0.4-2.0) mmol/L Calcium (8.6-10.3) mg/dl Magnesium (1.7-2.4) mg/dl Total Bilirubin (0.2-1.0) mg/dl AST (13-39) U/L ALT (7-52) U/L Alkaline Phosphatase (34-104) U/L Total Creatine Kinase (30-223) U/L C-Reactive Protein (0-0.5) mg/dl B-Natriuretic Peptide (0-100) pg/ml Total Protein (6.0-8.3) gm/dl Albumin (3.4-5.0) gm/dl Globulin (2.5-4.0) gm/dl Albumin/Globulin Ratio (0.9-2) Lipase (11-82) U/L TSH 2.348 (0.300-4.500) uIu/ml Urine Color Urine Appearance (Clear) Urine pH (4.5-7.5) Ur Specific [place] (1.000-1.030) Urine Protein (Negative) Urine Glucose (UA) (Negative) Urine Ketones (Negative) Urine Blood (Negative) Urine Nitrite (Negative) Urine Bilirubin (Negative) Urine Urobilinogen (Negative) Ur Leukocyte Esterase (Negative) Urine WBC (Auto) (0-5) /hpf Urine RBC (Auto) (0-4) /hpf U Hyaline Cast (Auto) (0-5) /lpf U Epithel Cells (Auto) (0-5) /lpf Urine Bacteria (Auto) (Negative) Urine Osmolality (500-800) mOsm/kg Ur Random Sodium mmol/L Salicylates (3.0-30) mg/dl Urine Opiates Screen (Neg) Ur Methadone, Qual (Neg) Acetaminophen (10-30) ug/ml Urine Barbiturates (Neg) Ur Phencyclidine (PCP) (Neg) U Amphetamin/Meth Scrn (Neg) MDMA (Ecstasy) Screen (Neg) U Benzodiazepines Scrn (Neg) Ur Cocaine Metabolite (Neg) U Marijuana (THC) Screen (Neg) Ethyl Alcohol mg/dL (<10.0) mg/dl Anaplasma Smear A. phagocytophilum DNA Lyme Disease IgG Ab (Negative) Lyme IgG (Western Blot) Lyme IgG 18 kDa Band Lyme IgG 23 kDa Band Lyme IgG 28 kDa Band Lyme IgG 30 kDa Band Lyme IgG 39 kDa Band Lyme IgG 41 kDa Band Lyme IgG 45 kDa Band Lyme IgG 58 kDa Band Lyme IgG 66 kDa Band Lyme IgG 93 kDa Band Lyme IgM Ab (WB) Lyme Disease IgM Ab (Negative) Lyme IgM 23 kDa Band Lyme IgM 39 kDa Band Lyme IgM 41 kDa Band Hepatitis A IgM Ab Hep Bs Antigen Hep Bs Ag Confirmation Hep B Core IgM Ab Hepatitis C Ab (EIA) Monoscreen (Negative) SARS-CoV-2, RNA, NAAT NEGATIVE (NEGATIVE) 11/26/22 11/26/22 11/26/22 Range/Units 22:19 22:09 22:09 WBC (4.8-10.8) K/ul RBC (4.70-6.10) M/uL Hgb (14.0-18.0) g/dl Hct (42.0-52.0) % MCV (80.0-100.0) fL MCH (25.0-34.0) pg MCHC (32.0-36.0) g/dL RDW Std Deviation (36.4-46.3) fL RDW Coeff of Marilee (11.5-14.5) % Plt Count (130-400) K/uL MPV (9.4-12.4) fL Immature Gran % (Auto) % Neut % (Auto) % Lymph % (Auto) % Mobile % (Auto) % Eos % (Auto) % Baso % (Auto) % Neut # (Auto) (1.40-6.50) K/uL Lymph # (Auto) (1.2-3.4) K/uL Mobile # (Auto) (0.11-0.59) K/uL Eos # (Auto) (0-0.50) K/uL Baso # (Auto) (0-0.2) K/uL Immature Gran # (Auto) (0.01-0.20) K/uL ESR (0-15) mm/hr PT (9.0-12.0) Seconds INR (0.9-1.1) APTT (21.0-31.0) Seconds PTT Ratio Sodium (136-145) mmol/L Potassium (3.5-5.1) mmol/L Chloride (98-107) mmol/L Carbon Dioxide (21-32) mmol/L Anion Gap (3-11) BUN (6-23) mg/dl Creatinine (0.6-1.4) mg/dl Est Cr Clr Drug Dosing ml/min Est GFR ( Amer) ml/min Est GFR (Non-Af Amer) ml/min BUN/Creatinine Ratio (10-20) Glucose (70-99(Fasting)) mg/dl Osmolality (280-300) mOsm/kg Lactate (0.4-2.0) mmol/L Calcium (8.6-10.3) mg/dl Magnesium (1.7-2.4) mg/dl Total Bilirubin (0.2-1.0) mg/dl AST (13-39) U/L ALT (7-52) U/L Alkaline Phosphatase (34-104) U/L Total Creatine Kinase (30-223) U/L C-Reactive Protein (0-0.5) mg/dl B-Natriuretic Peptide 82 (0-100) pg/ml Total Protein (6.0-8.3) gm/dl Albumin (3.4-5.0) gm/dl Globulin (2.5-4.0) gm/dl Albumin/Globulin Ratio (0.9-2) Lipase (11-82) U/L TSH (0.300-4.500) uIu/ml Urine Color Urine Appearance (Clear) Urine pH (4.5-7.5) Ur Specific [place] (1.000-1.030) Urine Protein (Negative) Urine Glucose (UA) (Negative) Urine Ketones (Negative) Urine Blood (Negative) Urine Nitrite (Negative) Urine Bilirubin (Negative) Urine Urobilinogen (Negative) Ur Leukocyte Esterase (Negative) Urine WBC (Auto) (0-5) /hpf Urine RBC (Auto) (0-4) /hpf U Hyaline Cast (Auto) (0-5) /lpf U Epithel Cells (Auto) (0-5) /lpf Urine Bacteria (Auto) (Negative) Urine Osmolality (500-800) mOsm/kg Ur Random Sodium mmol/L Salicylates (3.0-30) mg/dl Urine Opiates Screen (Neg) Ur Methadone, Qual (Neg) Acetaminophen (10-30) ug/ml Urine Barbiturates (Neg) Ur Phencyclidine (PCP) (Neg) U Amphetamin/Meth Scrn (Neg) MDMA (Ecstasy) Screen (Neg) U Benzodiazepines Scrn (Neg) Ur Cocaine Metabolite (Neg) U Marijuana (THC) Screen (Neg) Ethyl Alcohol mg/dL (<10.0) mg/dl Anaplasma Smear A. phagocytophilum DNA Pending Lyme Disease IgG Ab (Negative) Lyme IgG (Western Blot) Lyme IgG 18 kDa Band Lyme IgG 23 kDa Band Lyme IgG 28 kDa Band Lyme IgG 30 kDa Band Lyme IgG 39 kDa Band Lyme IgG 41 kDa Band Lyme IgG 45 kDa Band Lyme IgG 58 kDa Band Lyme IgG 66 kDa Band Lyme IgG 93 kDa Band Lyme IgM Ab (WB) Lyme Disease IgM Ab (Negative) Lyme IgM 23 kDa Band Lyme IgM 39 kDa Band Lyme IgM 41 kDa Band Hepatitis A IgM Ab Pending Hep Bs Antigen Pending Hep Bs Ag Confirmation Pending Hep B Core IgM Ab Pending Hepatitis C Ab (EIA) Pending Monoscreen (Negative) SARS-CoV-2, RNA, NAAT (NEGATIVE) 11/26/22 11/26/22 11/26/22 Range/Units 22:01 22:01 22:01 WBC (4.8-10.8) K/ul RBC (4.70-6.10) M/uL Hgb (14.0-18.0) g/dl Hct (42.0-52.0) % MCV (80.0-100.0) fL MCH (25.0-34.0) pg MCHC (32.0-36.0) g/dL RDW Std Deviation (36.4-46.3) fL RDW Coeff of Marilee (11.5-14.5) % Plt Count (130-400) K/uL MPV (9.4-12.4) fL Immature Gran % (Auto) % Neut % (Auto) % Lymph % (Auto) % Mobile % (Auto) % Eos % (Auto) % Baso % (Auto) % Neut # (Auto) (1.40-6.50) K/uL Lymph # (Auto) (1.2-3.4) K/uL Mobile # (Auto) (0.11-0.59) K/uL Eos # (Auto) (0-0.50) K/uL Baso # (Auto) (0-0.2) K/uL Immature Gran # (Auto) (0.01-0.20) K/uL ESR (0-15) mm/hr PT (9.0-12.0) Seconds INR (0.9-1.1) APTT (21.0-31.0) Seconds PTT Ratio Sodium (136-145) mmol/L Potassium (3.5-5.1) mmol/L Chloride (98-107) mmol/L Carbon Dioxide (21-32) mmol/L Anion Gap (3-11) BUN (6-23) mg/dl Creatinine (0.6-1.4) mg/dl Est Cr Clr Drug Dosing ml/min Est GFR ( Amer) ml/min Est GFR (Non-Af Amer) ml/min BUN/Creatinine Ratio (10-20) Glucose (70-99(Fasting)) mg/dl Osmolality (280-300) mOsm/kg Lactate (0.4-2.0) mmol/L Calcium (8.6-10.3) mg/dl Magnesium (1.7-2.4) mg/dl Total Bilirubin (0.2-1.0) mg/dl AST (13-39) U/L ALT (7-52) U/L Alkaline Phosphatase (34-104) U/L Total Creatine Kinase (30-223) U/L C-Reactive Protein (0-0.5) mg/dl B-Natriuretic Peptide (0-100) pg/ml Total Protein (6.0-8.3) gm/dl Albumin (3.4-5.0) gm/dl Globulin (2.5-4.0) gm/dl Albumin/Globulin Ratio (0.9-2) Lipase (11-82) U/L TSH (0.300-4.500) uIu/ml Urine Color Dark Yellow Urine Appearance Clear (Clear) Urine pH 5.5 (4.5-7.5) Ur Specific [place] 1.023 (1.000-1.030) Urine Protein 1+ H (Negative) Urine Glucose (UA) Negative (Negative) Urine Ketones 2+ H (Negative) Urine Blood Negative (Negative) Urine Nitrite Positive A (Negative) Urine Bilirubin 2+ H (Negative) Urine Urobilinogen Positive H (Negative) Ur Leukocyte Esterase Trace H (Negative) Urine WBC (Auto) 1-5 (0-5) /hpf Urine RBC (Auto) 0-4 (0-4) /hpf U Hyaline Cast (Auto) 1-5 (0-5) /lpf U Epithel Cells (Auto) 0-5 (0-5) /lpf Urine Bacteria (Auto) Negative (Negative) Urine Osmolality 731 (500-800) mOsm/kg Ur Random Sodium 10 mmol/L Salicylates (3.0-30) mg/dl Urine Opiates Screen (Neg) Ur Methadone, Qual (Neg) Acetaminophen (10-30) ug/ml Urine Barbiturates (Neg) Ur Phencyclidine (PCP) (Neg) U Amphetamin/Meth Scrn (Neg) MDMA (Ecstasy) Screen (Neg) U Benzodiazepines Scrn (Neg) Ur Cocaine Metabolite (Neg) U Marijuana (THC) Screen (Neg) Ethyl Alcohol mg/dL (<10.0) mg/dl Anaplasma Smear A. phagocytophilum DNA Lyme Disease IgG Ab (Negative) Lyme IgG (Western Blot) Lyme IgG 18 kDa Band Lyme IgG 23 kDa Band Lyme IgG 28 kDa Band Lyme IgG 30 kDa Band Lyme IgG 39 kDa Band Lyme IgG 41 kDa Band Lyme IgG 45 kDa Band Lyme IgG 58 kDa Band Lyme IgG 66 kDa Band Lyme IgG 93 kDa Band Lyme IgM Ab (WB) Lyme Disease IgM Ab (Negative) Lyme IgM 23 kDa Band Lyme IgM 39 kDa Band Lyme IgM 41 kDa Band Hepatitis A IgM Ab Hep Bs Antigen Hep Bs Ag Confirmation Hep B Core IgM Ab Hepatitis C Ab (EIA) Monoscreen (Negative) SARS-CoV-2, RNA, NAAT (NEGATIVE) 11/26/22 11/26/22 11/26/22 Range/Units 22:01 21:45 21:45 WBC (4.8-10.8) K/ul RBC (4.70-6.10) M/uL Hgb (14.0-18.0) g/dl Hct (42.0-52.0) % MCV (80.0-100.0) fL MCH (25.0-34.0) pg MCHC (32.0-36.0) g/dL RDW Std Deviation (36.4-46.3) fL RDW Coeff of Marilee (11.5-14.5) % Plt Count (130-400) K/uL MPV (9.4-12.4) fL Immature Gran % (Auto) % Neut % (Auto) % Lymph % (Auto) % Mobile % (Auto) % Eos % (Auto) % Baso % (Auto) % Neut # (Auto) (1.40-6.50) K/uL Lymph # (Auto) (1.2-3.4) K/uL Mobile # (Auto) (0.11-0.59) K/uL Eos # (Auto) (0-0.50) K/uL Baso # (Auto) (0-0.2) K/uL Immature Gran # (Auto) (0.01-0.20) K/uL ESR (0-15) mm/hr PT (9.0-12.0) Seconds INR (0.9-1.1) APTT (21.0-31.0) Seconds PTT Ratio Sodium (136-145) mmol/L Potassium (3.5-5.1) mmol/L Chloride (98-107) mmol/L Carbon Dioxide (21-32) mmol/L Anion Gap (3-11) BUN (6-23) mg/dl Creatinine (0.6-1.4) mg/dl Est Cr Clr Drug Dosing ml/min Est GFR ( Amer) ml/min Est GFR (Non-Af Amer) ml/min BUN/Creatinine Ratio (10-20) Glucose (70-99(Fasting)) mg/dl Osmolality (280-300) mOsm/kg Lactate 1.1 (0.4-2.0) mmol/L Calcium (8.6-10.3) mg/dl Magnesium (1.7-2.4) mg/dl Total Bilirubin (0.2-1.0) mg/dl AST (13-39) U/L ALT (7-52) U/L Alkaline Phosphatase (34-104) U/L Total Creatine Kinase (30-223) U/L C-Reactive Protein (0-0.5) mg/dl B-Natriuretic Peptide (0-100) pg/ml Total Protein (6.0-8.3) gm/dl Albumin (3.4-5.0) gm/dl Globulin (2.5-4.0) gm/dl Albumin/Globulin Ratio (0.9-2) Lipase (11-82) U/L TSH (0.300-4.500) uIu/ml Urine Color Urine Appearance (Clear) Urine pH (4.5-7.5) Ur Specific [place] (1.000-1.030) Urine Protein (Negative) Urine Glucose (UA) (Negative) Urine Ketones (Negative) Urine Blood (Negative) Urine Nitrite (Negative) Urine Bilirubin (Negative) Urine Urobilinogen (Negative) Ur Leukocyte Esterase (Negative) Urine WBC (Auto) (0-5) /hpf Urine RBC (Auto) (0-4) /hpf U Hyaline Cast (Auto) (0-5) /lpf U Epithel Cells (Auto) (0-5) /lpf Urine Bacteria (Auto) (Negative) Urine Osmolality (500-800) mOsm/kg Ur Random Sodium mmol/L Salicylates (3.0-30) mg/dl Urine Opiates Screen Neg (Neg) Ur Methadone, Qual Neg (Neg) Acetaminophen (10-30) ug/ml Urine Barbiturates Neg (Neg) Ur Phencyclidine (PCP) Neg (Neg) U Amphetamin/Meth Scrn Neg (Neg) MDMA (Ecstasy) Screen Neg (Neg) U Benzodiazepines Scrn Neg (Neg) Ur Cocaine Metabolite Neg (Neg) U Marijuana (THC) Screen Neg (Neg) Ethyl Alcohol mg/dL (<10.0) mg/dl Anaplasma Smear A. phagocytophilum DNA Lyme Disease IgG Ab (Negative) Lyme IgG (Western Blot) Pending Lyme IgG 18 kDa Band Pending Lyme IgG 23 kDa Band Pending Lyme IgG 28 kDa Band Pending Lyme IgG 30 kDa Band Pending Lyme IgG 39 kDa Band Pending Lyme IgG 41 kDa Band Pending Lyme IgG 45 kDa Band Pending Lyme IgG 58 kDa Band Pending Lyme IgG 66 kDa Band Pending Lyme IgG 93 kDa Band Pending Lyme IgM Ab (WB) Pending Lyme Disease IgM Ab (Negative) Lyme IgM 23 kDa Band Pending Lyme IgM 39 kDa Band Pending Lyme IgM 41 kDa Band Pending Hepatitis A IgM Ab Hep Bs Antigen Hep Bs Ag Confirmation Hep B Core IgM Ab Hepatitis C Ab (EIA) Monoscreen (Negative) SARS-CoV-2, RNA, NAAT (NEGATIVE) 11/26/22 11/26/22 11/26/22 Range/Units 21:45 21:45 21:45 WBC (4.8-10.8) K/ul RBC (4.70-6.10) M/uL Hgb (14.0-18.0) g/dl Hct (42.0-52.0) % MCV (80.0-100.0) fL MCH (25.0-34.0) pg MCHC (32.0-36.0) g/dL RDW Std Deviation (36.4-46.3) fL RDW Coeff of Marilee (11.5-14.5) % Plt Count (130-400) K/uL MPV (9.4-12.4) fL Immature Gran % (Auto) % Neut % (Auto) % Lymph % (Auto) % Mobile % (Auto) % Eos % (Auto) % Baso % (Auto) % Neut # (Auto) (1.40-6.50) K/uL Lymph # (Auto) (1.2-3.4) K/uL Mobile # (Auto) (0.11-0.59) K/uL Eos # (Auto) (0-0.50) K/uL Baso # (Auto) (0-0.2) K/uL Immature Gran # (Auto) (0.01-0.20) K/uL ESR 32 H (0-15) mm/hr PT (9.0-12.0) Seconds INR (0.9-1.1) APTT (21.0-31.0) Seconds PTT Ratio Sodium (136-145) mmol/L Potassium (3.5-5.1) mmol/L Chloride (98-107) mmol/L Carbon Dioxide (21-32) mmol/L Anion Gap (3-11) BUN (6-23) mg/dl Creatinine (0.6-1.4) mg/dl Est Cr Clr Drug Dosing ml/min Est GFR ( Amer) ml/min Est GFR (Non-Af Amer) ml/min BUN/Creatinine Ratio (10-20) Glucose (70-99(Fasting)) mg/dl Osmolality (280-300) mOsm/kg Lactate (0.4-2.0) mmol/L Calcium (8.6-10.3) mg/dl Magnesium (1.7-2.4) mg/dl Total Bilirubin (0.2-1.0) mg/dl AST (13-39) U/L ALT (7-52) U/L Alkaline Phosphatase (34-104) U/L Total Creatine Kinase (30-223) U/L C-Reactive Protein (0-0.5) mg/dl B-Natriuretic Peptide (0-100) pg/ml Total Protein (6.0-8.3) gm/dl Albumin (3.4-5.0) gm/dl Globulin (2.5-4.0) gm/dl Albumin/Globulin Ratio (0.9-2) Lipase (11-82) U/L TSH (0.300-4.500) uIu/ml Urine Color Urine Appearance (Clear) Urine pH (4.5-7.5) Ur Specific [place] (1.000-1.030) Urine Protein (Negative) Urine Glucose (UA) (Negative) Urine Ketones (Negative) Urine Blood (Negative) Urine Nitrite (Negative) Urine Bilirubin (Negative) Urine Urobilinogen (Negative) Ur Leukocyte Esterase (Negative) Urine WBC (Auto) (0-5) /hpf Urine RBC (Auto) (0-4) /hpf U Hyaline Cast (Auto) (0-5) /lpf U Epithel Cells (Auto) (0-5) /lpf Urine Bacteria (Auto) (Negative) Urine Osmolality (500-800) mOsm/kg Ur Random Sodium mmol/L Salicylates < 3.0 L (3.0-30) mg/dl Urine Opiates Screen (Neg) Ur Methadone, Qual (Neg) Acetaminophen < 3 L (10-30) ug/ml Urine Barbiturates (Neg) Ur Phencyclidine (PCP) (Neg) U Amphetamin/Meth Scrn (Neg) MDMA (Ecstasy) Screen (Neg) U Benzodiazepines Scrn (Neg) Ur Cocaine Metabolite (Neg) U Marijuana (THC) Screen (Neg) Ethyl Alcohol mg/dL < 10.0 (<10.0) mg/dl Anaplasma Smear A. phagocytophilum DNA Lyme Disease IgG Ab (Negative) Lyme IgG (Western Blot) Lyme IgG 18 kDa Band Lyme IgG 23 kDa Band Lyme IgG 28 kDa Band Lyme IgG 30 kDa Band Lyme IgG 39 kDa Band Lyme IgG 41 kDa Band Lyme IgG 45 kDa Band Lyme IgG 58 kDa Band Lyme IgG 66 kDa Band Lyme IgG 93 kDa Band Lyme IgM Ab (WB) Lyme Disease IgM Ab (Negative) Lyme IgM 23 kDa Band Lyme IgM 39 kDa Band Lyme IgM 41 kDa Band Hepatitis A IgM Ab Hep Bs Antigen Hep Bs Ag Confirmation Hep B Core IgM Ab Hepatitis C Ab (EIA) Monoscreen (Negative) SARS-CoV-2, RNA, NAAT (NEGATIVE) 11/26/22 11/26/22 11/26/22 Range/Units 21:45 21:45 21:45 WBC 7.34 (4.8-10.8) K/ul RBC 5.32 (4.70-6.10) M/uL Hgb 16.6 (14.0-18.0) g/dl Hct 48.4 (42.0-52.0) % MCV 91.0 (80.0-100.0) fL MCH 31.2 (25.0-34.0) pg MCHC 34.3 (32.0-36.0) g/dL RDW Std Deviation 40.4 (36.4-46.3) fL RDW Coeff of Marilee 12.2 (11.5-14.5) % Plt Count 218 (130-400) K/uL MPV 9.9 (9.4-12.4) fL Immature Gran % (Auto) 2.0 % Neut % (Auto) 79.1 % Lymph % (Auto) 8.6 % Mobile % (Auto) 9.0 % Eos % (Auto) 0.8 % Baso % (Auto) 0.5 % Neut # (Auto) 5.80 (1.40-6.50) K/uL Lymph # (Auto) 0.63 L (1.2-3.4) K/uL Mobile # (Auto) 0.66 H (0.11-0.59) K/uL Eos # (Auto) 0.06 (0-0.50) K/uL Baso # (Auto) 0.04 (0-0.2) K/uL Immature Gran # (Auto) 0.15 (0.01-0.20) K/uL ESR (0-15) mm/hr PT 11.9 (9.0-12.0) Seconds INR 1.1 (0.9-1.1) APTT 29.6 (21.0-31.0) Seconds PTT Ratio 1.0 Sodium 130 L (136-145) mmol/L Potassium 4.0 (3.5-5.1) mmol/L Chloride 94 L (98-107) mmol/L Carbon Dioxide 27 (21-32) mmol/L Anion Gap 9 (3-11) BUN 13 (6-23) mg/dl Creatinine 1.18 (0.6-1.4) mg/dl Est Cr Clr Drug Dosing 110.1 ml/min Est GFR ( Amer) 89.6 ml/min Est GFR (Non-Af Amer) 77.3 ml/min BUN/Creatinine Ratio 11.0 (10-20) Glucose 90 (70-99(Fasting)) mg/dl Osmolality (280-300) mOsm/kg Lactate (0.4-2.0) mmol/L Calcium 8.3 L (8.6-10.3) mg/dl Magnesium 1.8 (1.7-2.4) mg/dl Total Bilirubin 5.0 H (0.2-1.0) mg/dl AST 196 H (13-39) U/L ALT 374 H (7-52) U/L Alkaline Phosphatase 104 (34-104) U/L Total Creatine Kinase 527 H (30-223) U/L C-Reactive Protein 9.96 H (0-0.5) mg/dl B-Natriuretic Peptide (0-100) pg/ml Total Protein 7.6 (6.0-8.3) gm/dl Albumin 3.9 (3.4-5.0) gm/dl Globulin 3.7 (2.5-4.0) gm/dl Albumin/Globulin Ratio 1.1 (0.9-2) Lipase (11-82) U/L TSH (0.300-4.500) uIu/ml Urine Color Urine Appearance (Clear) Urine pH (4.5-7.5) Ur Specific [place] (1.000-1.030) Urine Protein (Negative) Urine Glucose (UA) (Negative) Urine Ketones (Negative) Urine Blood (Negative) Urine Nitrite (Negative) Urine Bilirubin (Negative) Urine Urobilinogen (Negative) Ur Leukocyte Esterase (Negative) Urine WBC (Auto) (0-5) /hpf Urine RBC (Auto) (0-4) /hpf U Hyaline Cast (Auto) (0-5) /lpf U Epithel Cells (Auto) (0-5) /lpf Urine Bacteria (Auto) (Negative) Urine Osmolality (500-800) mOsm/kg Ur Random Sodium mmol/L Salicylates (3.0-30) mg/dl Urine Opiates Screen (Neg) Ur Methadone, Qual (Neg) Acetaminophen (10-30) ug/ml Urine Barbiturates (Neg) Ur Phencyclidine (PCP) (Neg) U Amphetamin/Meth Scrn (Neg) MDMA (Ecstasy) Screen (Neg) U Benzodiazepines Scrn (Neg) Ur Cocaine Metabolite (Neg) U Marijuana (THC) Screen (Neg) Ethyl Alcohol mg/dL (<10.0) mg/dl Anaplasma Smear See Comment A. phagocytophilum DNA Lyme Disease IgG Ab (Negative) Lyme IgG (Western Blot) Lyme IgG 18 kDa Band Lyme IgG 23 kDa Band Lyme IgG 28 kDa Band Lyme IgG 30 kDa Band Lyme IgG 39 kDa Band Lyme IgG 41 kDa Band Lyme IgG 45 kDa Band Lyme IgG 58 kDa Band Lyme IgG 66 kDa Band Lyme IgG 93 kDa Band Lyme IgM Ab (WB) Lyme Disease IgM Ab (Negative) Lyme IgM 23 kDa Band Lyme IgM 39 kDa Band Lyme IgM 41 kDa Band Hepatitis A IgM Ab Hep Bs Antigen Hep Bs Ag Confirmation Hep B Core IgM Ab Hepatitis C Ab (EIA) Monoscreen (Negative) SARS-CoV-2, RNA, NAAT (NEGATIVE) 11/26/22 Range/Units 21:45 WBC (4.8-10.8) K/ul RBC (4.70-6.10) M/uL Hgb (14.0-18.0) g/dl Hct (42.0-52.0) % MCV (80.0-100.0) fL MCH (25.0-34.0) pg MCHC (32.0-36.0) g/dL RDW Std Deviation (36.4-46.3) fL RDW Coeff of Marilee (11.5-14.5) % Plt Count (130-400) K/uL MPV (9.4-12.4) fL Immature Gran % (Auto) % Neut % (Auto) % Lymph % (Auto) % Mobile % (Auto) % Eos % (Auto) % Baso % (Auto) % Neut # (Auto) (1.40-6.50) K/uL Lymph # (Auto) (1.2-3.4) K/uL Mobile # (Auto) (0.11-0.59) K/uL Eos # (Auto) (0-0.50) K/uL Baso # (Auto) (0-0.2) K/uL Immature Gran # (Auto) (0.01-0.20) K/uL ESR (0-15) mm/hr PT (9.0-12.0) Seconds INR (0.9-1.1) APTT (21.0-31.0) Seconds PTT Ratio Sodium (136-145) mmol/L Potassium (3.5-5.1) mmol/L Chloride (98-107) mmol/L Carbon Dioxide (21-32) mmol/L Anion Gap (3-11) BUN (6-23) mg/dl Creatinine (0.6-1.4) mg/dl Est Cr Clr Drug Dosing ml/min Est GFR ( Amer) ml/min Est GFR (Non-Af Amer) ml/min BUN/Creatinine Ratio (10-20) Glucose (70-99(Fasting)) mg/dl Osmolality (280-300) mOsm/kg Lactate (0.4-2.0) mmol/L Calcium (8.6-10.3) mg/dl Magnesium (1.7-2.4) mg/dl Total Bilirubin (0.2-1.0) mg/dl AST (13-39) U/L ALT (7-52) U/L Alkaline Phosphatase (34-104) U/L Total Creatine Kinase (30-223) U/L C-Reactive Protein (0-0.5) mg/dl B-Natriuretic Peptide (0-100) pg/ml Total Protein (6.0-8.3) gm/dl Albumin (3.4-5.0) gm/dl Globulin (2.5-4.0) gm/dl Albumin/Globulin Ratio (0.9-2) Lipase (11-82) U/L TSH (0.300-4.500) uIu/ml Urine Color Urine Appearance (Clear) Urine pH (4.5-7.5) Ur Specific [place] (1.000-1.030) Urine Protein (Negative) Urine Glucose (UA) (Negative) Urine Ketones (Negative) Urine Blood (Negative) Urine Nitrite (Negative) Urine Bilirubin (Negative) Urine Urobilinogen (Negative) Ur Leukocyte Esterase (Negative) Urine WBC (Auto) (0-5) /hpf Urine RBC (Auto) (0-4) /hpf U Hyaline Cast (Auto) (0-5) /lpf U Epithel Cells (Auto) (0-5) /lpf Urine Bacteria (Auto) (Negative) Urine Osmolality (500-800) mOsm/kg Ur Random Sodium mmol/L Salicylates (3.0-30) mg/dl Urine Opiates Screen (Neg) Ur Methadone, Qual (Neg) Acetaminophen (10-30) ug/ml Urine Barbiturates (Neg) Ur Phencyclidine (PCP) (Neg) U Amphetamin/Meth Scrn (Neg) MDMA (Ecstasy) Screen (Neg) U Benzodiazepines Scrn (Neg) Ur Cocaine Metabolite (Neg) U Marijuana (THC) Screen (Neg) Ethyl Alcohol mg/dL (<10.0) mg/dl Anaplasma Smear A. phagocytophilum DNA Lyme Disease IgG Ab Negative (Negative) Lyme IgG (Western Blot) Lyme IgG 18 kDa Band Lyme IgG 23 kDa Band Lyme IgG 28 kDa Band Lyme IgG 30 kDa Band Lyme IgG 39 kDa Band Lyme IgG 41 kDa Band Lyme IgG 45 kDa Band Lyme IgG 58 kDa Band Lyme IgG 66 kDa Band Lyme IgG 93 kDa Band Lyme IgM Ab (WB) Lyme Disease IgM Ab Positive A (Negative) Lyme IgM 23 kDa Band Lyme IgM 39 kDa Band Lyme IgM 41 kDa Band Hepatitis A IgM Ab Hep Bs Antigen Hep Bs Ag Confirmation Hep B Core IgM Ab Hepatitis C Ab (EIA) Monoscreen Negative (Negative) SARS-CoV-2, RNA, NAAT (NEGATIVE) Diagnostic Findings Abdomen/Pelvis CT 11/26/22 21:25 CT SCAN OF THE ABDOMEN AND PELVIS WITH IV CONTRAST CLINICAL HISTORY: Elevated hepatic transaminases. Jaundice. COMPARISON STUDY: No priors. TECHNIQUE: Following the IV administration of 95 cc of Optiray 320, CT scan of the abdomen and pelvis is performed from the lung bases to the proximal femora. Images are reviewed in the axial, sagittal, and coronal planes. IV contrast was administered without complication. A dose lowering technique was utilized adhering to the principles of ALARA. CT DOSE: 1605.89 mGy.cm FINDINGS: Lung bases: The heart is normal in size and without pericardial effusion. The lung bases are clear. Liver: The contrast-enhanced liver is enlarged and heterogeneous, measuring 24.8 cm in length. Question mild nodularity of the hepatic surface contour. There is no intrahepatic biliary ductal dilatation. The hepatic veins and portal veins are patent. Gallbladder: Unremarkable. Spleen: The spleen is enlarged, measuring 19.7 cm in length. Pancreas: Unremarkable. Adrenal glands: Unremarkable. Kidneys: The contrast enhanced kidneys are normal in size and without hydronephrosis. The kidneys enhance symmetrically. Abdominal vasculature: The abdominal aorta is normal in course and caliber. Bowel: There is no bowel obstruction. The appendix is not identified and reported surgically absent. Peritoneum: There is no intraperitoneal free air or abdominal ascites. There is a fat-containing umbilical hernia. Lymphadenopathy: Prominent lymph nodes in the viviana hepatis are likely reactive. Pelvic viscera: The bladder, prostate, and seminal vesicles are normal as visualized. Skeletal structures: There are bilateral pars defects at L5 with 11 mm of anterolisthesis at L5-S1. Mild lumbosacral spondylosis is observed. No lytic or blastic lesions are seen. Soft tissues: Soft tissue induration overlies the gluteus sarita muscle bilaterally. IMPRESSION: 1. The liver is enlarged and heterogeneous. Mild nodularity of the surface contour suggests early morphologic change of cirrhosis. 2. Splenomegaly. 3. There is no intra or extrahepatic biliary ductal dilatation 4. Soft tissue induration overlies the gluteus sarita muscle bilaterally. This could represent contusions or possibly changes related to prior subacute injections. Correlate clinically. 5. Additional findings as above. ACT 112: Negative or not required by law. Electronically signed by: Kendall Diego M.D. 11/26/2022 10:59 PM Chest X-Ray 11/27/22 00:15 XR chest 1V portable HISTORY: hyponatremia COMPARISON: Abdomen and pelvis CT 11/26/2022. FINDINGS: No pneumothorax. No pleural effusions. The cardiac silhouette is top normal in size. There is prominence within the right mediastinal border which could be due to the AP portable technique. This is not confirmed on the second view and is therefore likely technical. The lungs are clear. IMPRESSION: No acute process within the chest. ACT 112: Negative or not required by law. Electronically signed by: Mau Perea M.D. 11/27/2022 8:02 AM
--- NOTE | 2022-11-27 14:18 | Communication Note ---
Date of Service: November 27, 2022 37-year-old man with PMH of ADD, anxiety disorder, GERD, hyperlipidemia [statin noncompliance] presented to the hospital with complaint of generalized weak ness/headache/dizziness/discolored urine/shortness of breath. Of note, patient lives in the [facility] and possibility of tick exposure. Also, he does weightlifting and is on multiple supplements, denies any steroid use. Toxicology screen at presentation negative. He is being managed for the following: Sepsis POA: Heart rate and temperature elevated at presentation. Lactic acid normal. Continue with IV fluid for now as patient is still tachycardic. Complicated UTI: Urine analysis suggestive of UTI. Follow urine culture. Continue with cefepime 11/27. Concern of Lyme disease: Patient lives in the [facility], Lyme's screen positive, confirmatory test pending. Continue with doxycycline 11/27. Transaminitis/early cirrhosis per admitting CTAP: LFTs downtrending, await hepatic profile. Patient advised to discontinue all workout supplements. Follow-up with GI as an outpatient. CPK elevation: Do not qualify diagnosis of rhabdomyolysis. Hyponatremia: Likely due to poor appetite prior to arrival, improving. Other chronic medical conditions: ADD/anxiety disorder/GERD --- continue with home meds as able. DVT prophylaxis: Lovenox subcu Full code On examination, patient was on room air, NAD, heart/lung/abdomen examination fairly WNL except for tachycardia. For detailed information on the patient, refer to today's H&P note.
[2022-11-27] MEDS ORDERED: TEMAZEPAM 15 MG CAPSULE PO SCH (21:00)
--- NOTE | 2022-11-27 21:20 | Electrocardiogram Report ---
Test Reason : Blood Pressure : / mmHG Vent. Rate : 123 BPM Atrial Rate : 123 BPM P-R Int : 136 ms QRS Dur : 100 ms QT Int : 298 ms P-R-T Axes : 042 -32 029 degrees QTc Int : 426 ms Sinus tachycardia Left axis deviation Minimal voltage criteria for LVH, may be normal variant Poor R wave progression, consider anterior NV vs. lead placement vs. LVH Abnormal ECG No previous ECGs available Confirmed by Kee Holliday ([id number]) on 11/27/2022 9:20:27 PM Referred By: REFERRED SELF Confirmed By:Kee Holliday
[2022-11-27] MEDS: DOXYCYCLINE HYCLATE 100 MG CAP PO SCH (21:32)
[2022-11-28] MEDS: CEFEPIME 2,000 MG in SYRINGE 0 ML IV SCH ×2 (01:29→07:39)
--- NOTE | 2022-11-28 06:51 | Gastroenterology Progress Note ---
Date of Service November 28, 2022 Assessment & Plan (1) Transaminitis: Plan: Seems to be improving. If LFT's better, okay with me to discharge. He agrees to follow with his PCP until LFT's go back to normal or to see GI Admission and Anticipated Discharge Date Admission Date: November 27, 2022 Subjective Feeling better. Reports urine is clear. No more headaches. Labs are not back yet Physical Exam Physical Exam: He looks well Results & Data Vital Signs (Past 12 Hours) Vital Signs Temp Pulse Pulse Pulse Resp BP Pulse Ox 11/28/22 03:04 36.6 C 82 16 126/73 95 11/28/22 01:43 82 11/27/22 22:48 36.5 C 97 H 18 135/90 96 11/27/22 19:15 36.7 C 90 16 125/83 92 O2 Del Method 11/28/22 03:04 Room Air 11/28/22 01:43 11/27/22 22:48 Room Air 11/27/22 19:15 Room Air
[2022-11-28 07:07] LABS: Hematocrit (blood only) 41.3 % (42.0-52.0); Hemoglobin 14.2 g/dl (14.0-18.0); Mean Corpuscular Hemoglobin 31.3 pg (25.0-34.0); Mean Corpuscular Hgb Conc 34.4 g/dL (32.0-36.0); Platelet Count 212 K/uL (130-400); RDW Coefficient of Variation 12.3 % (11.5-14.5); RDW Standard Deviation 41.1 fL (36.4-46.3); Red Blood Count 4.54 M/uL (4.70-6.10); White Blood Count 5.62 K/ul (4.8-10.8)
[2022-11-28] MEDS: ENOXAPARIN INJ 40 MG/0.4 ML SYR SQ SCH (07:22)
[2022-11-28] MEDS: TAMSULOSIN HCL 0.4 MG CAP PO SCH (07:22)
[2022-11-28 07:25] LABS: BUN Creatinine Ratio 12.4 (10-20); Calcium 7.9 mg/dl (8.6-10.3); Creatinine Clr Calc Pharmacy 154.9 ml/min; Est GFR (African American) 113.5 ml/min; Est GFR (Non-African American) 97.9 ml/min; Magnesium 2.1 mg/dl (1.7-2.4); Phosphorus 2.5 mg/dl (2.5-4.9); Potassium 4.2 mmol/L (3.5-5.1)
[2022-11-28] MEDS: DOXYCYCLINE HYCLATE 100 MG CAP PO SCH (07:37)
[2022-11-28] MEDS: PANTOprazole 40 MG TAB PO SCH (07:37)
--- NOTE | 2022-11-28 10:12 | Discharge Summary ---
Date of Service November 28, 2022 Admission HPI Per Admitting Provider History obtained from patient and records. Medical history significant for ADD, anxiety disorder, GERD, hyperlipidemia (statin noncompliance). 1 month history of left upper quadrant pain. Patient seen at PCP's office. Musculoskeletal pain as per PCP note. Outpatient abdominal ultrasound requested to rule out spleen problems as per patient. Last 5 days, patient noted generalized weakness associated with headache, li ghtheadedness. Poor appetite with rust colored urine noted. Shortness of breath from weakness. Patient denies chest pain. Same left-sided abdominal pain. Possible tick exposure as patient lives in the [facility]. Denies inordinate Tylenol intake. Denies IVDU. No recent overseas travel. Admits to taking health supplements for some time now. Admits to heavy lifting during workouts. Patient seen at urgent care center yesterday. Plain x-ray of the abdomen done which showed possible kidney stone as per patient. Abnormal LFTs noted. Patient directed to ER by outpatient provider. Medical History as above Surgical History : Knee surgeries, appendectomy Family History : Brain cancer, thyroid cancer, COPD, alcoholism Personal/Social history : Non-smoker, occasional EtOH intake, sales work Admission Exam Per Admitting Provider GENERAL: Comfortable, obese, pleasant, no respiratory distress SKIN: Normal color, warm HEENT: Alopecia, [place] palpebral conjunctivae, no ptosis, dry buccal mucosa NECK : Supple, short neck, no tenderness CHEST : CTA, no tenderness HEART : Tachycardic, no obvious murmurs ABDOMEN: Some distention, minimal left-sided tenderness EXTREMITIES : No LE swelling/tenderness, no other conspicuous deformities noted NEUROLOGIC : Coherent, no facial asymmetry, no other gross focality Principal Diagnosis Sepsis POA Complicated UTI Concern of lung disease Transaminitis/early cirrhosis Hyponatremia Discharge Exam GENERAL: Alert and oriented x3. NAD, on RA. HEENT: No pallor, no icterus. Pupils equal, round and reactive to light. Oral mucosa moist. NECK: No JVD, no neck masses. HEART: S1 and S2 heard. Regular rate and rhythm. No murmur, no gallop. RESPIRATORY SYSTEM: Normal AP diameter. No accessory muscle use. No wheezing, no crackles. ABDOMEN: Soft, bowel sounds present, nontender, no distention. CENTRAL NERVOUS SYSTEM: No facial droop. Speech is clear. Obeys simple commands. Moves extremities. EXTREMITIES: No edema, no erythema seen. Discharge Data Allergies Allergy/AdvReac Type Severity Reaction Status Date / Time Penicillins Allergy Intermediate Hives Verified 11/26/22 23:39 Consultations 11/27/22 00:08 ED Decision to Admit Stat 11/27/22 02:43 Consult Gastroenterology Routine Ordered Studies 11/26/22 21:25 CT abd pelvis IV con only Stat Hospital Course (1) Sepsis: Plan 37-year-old man with PMH of ADD, anxiety disorder, GERD, hyperlipidemia [statin noncompliance] presented to the hospital with complaint of generalized weakness/headache/dizziness/discolored urine/shortness of breath. Of note, patient lives in the [facility] and possibility of tick exposure. Also, he does weightlifting and is on multiple supplements, denies any steroid use. Toxicology screen at presentation negative. He was managed for the following: Sepsis POA: Heart rate and temperature elevated at presentation. Lactic acid normal. HR better today, can dc ivf. pt's po intake appropriate Complicated UTI: Urine analysis suggestive of UTI. Follow urine culture. Continue with cefepime 11/27 on oral atb on dc to complete the course. Concern of Lyme disease: Patient lives in the [facility], Lyme's screen positive, confirmatory test pending, pt to follow up on the test during pcp visit. Continue with doxycycline 11/27. 14 day course unless confirmatory test comes back negative. Transaminitis/early cirrhosis per admitting CTAP: LFTs downtrending, await hepatic profile. Patient advised to discontinue all workout supplements. Follow-up with GI as an outpatient. Pt aware to f/u w/ gi CPK elevation: Do not qualify diagnosis of rhabdomyolysis. Hyponatremia: Likely due to poor appetite prior to arrival, improving. Other chronic medical conditions: ADD/anxiety disorder/GERD --- continue with home meds as able. DVT prophylaxis: Lovenox subcu Full code Patient being discharged home with following instruction at the point of discharge: Follow-up with your primary care physician within a week time and likely you will need labs CBC/CMP/magnesium/phosphorus. You will need to follow-up on the final results of your urine culture/hepatitis panel/confirmatory test for Lyme; coordinate with your PCP office in your next visit within a week time. Follow-up with GI doctor as an outpatient because of elevated liver enzymes and concern for cirrhosis. You will be discharged on antibiotic doxycycline (total of 14 days course; 13 more days on discharge) for concern of Lyme disease, if your confirmatory test for Lyme disease is Negative, you can discontinue antibiotic at that time. You will be discharged on antibiotic to complete the course of UTI. Take your medications as prescribed. Please make sure that you are able to get your medications today by calling your pharmacy before you leave the hospital so that your treatment continuity is not broken. Home Health Attestation I certify that this patient is under my care and that I, or a physicians liaison inspection laboratory assistant working with me, had a face to-face encounter that meets the home health [id number] encounter requirements with this patient. The encounter with the patient was in whole, or in part, for the following medical condition, which is the primary reason for home health care (list medical condition): I certify that, based on my findings, the following services are medically necessary home health services: My clinical findings support the need for the above services because: Further, I certify that my clinical findings support that this patient is homebound (i.e. absences from home require considerable and taxing effort and are for medical reasons or tenriism services or infrequently or of short duration when for other reasons) because: Certification for Home Health Services: Based on the above findings, I certify that this patient is confined to the home and needs intermittent jail care, physical therapy and/or speech therapy or continues to need occupational therapy. The patient is under my care, and I have initiated the establishment of the plan of care. This patient will be followed by a physician who will periodically review the plan of care. Total Time Total Time Spent Total Time Spent (In Minutes): 45 Discharge Plan Discharge Items Patient Disposition: Home - Self-Care Reason For Visit: SEPSIS Discharge Diagnosis: Sepsis POA Complicated UTI Concern of lung disease Transaminitis/early cirrhosis Hyponatremia Activity: Resume your previous activity Non-emergency contact: Primary Care Provider Call non-emergency contact if: you have any medication questions and your temperature is above 101 Follow-up/Referrals: Sara De La Garza DO [Primary Care Provider] - Diet: Regular Addtl Attending Provider Instructions: Follow-up with your primary care physician within a week time and likely you will need labs CBC/CMP/magnesium/phosphorus. You will need to follow-up on the final results of your urine culture/hepatitis panel/confirmatory test for Lyme; coordinate with your PCP office in your next visit within a week time. Follow-up with GI doctor as an outpatient because of elevated liver enzymes and concern for cirrhosis. You will be discharged on antibiotic doxycycline (total of 14 days course; 13 more days on discharge) for concern of Lyme disease, if your confirmatory test for Lyme disease is Negative, you can discontinue antibiotic at that time. You will be discharged on antibiotic to complete the course of UTI. Take your medications as prescribed. Please make sure that you are able to get your medications today by calling your pharmacy before you leave the hospital so that your treatment continuity is not broken. Pending Studies at Discharge: Yes Stand-Alone Forms: My [facility] [employer], Smoking Cessation Medications and DC Order Prescriptions: New doxycycline hyclate 100 mg Capsule 100 mg PO BID 13 Days Qty: 26 0RF cephalexin 750 mg capsule 750 mg PO Q8H 5 Days Qty: 15 0RF Probiotic 3 billion cell capsule 3,000 mmu cells PO DAILY 14 Days Qty: 14 0RF Rx Instructions: administer with a meal Continued famotidine 20 mg tablet 40 mg PO DAILY PRN (Reason: HEARTBURN/INDIGESTION) tamsulosin 0.4 mg capsule 0.4 mg PO DAILY temazepam 30 mg capsule 30 mg PO HS pantoprazole 40 mg tablet,delayed release (DR/EC) 40 mg PO DAILY buspirone 10 mg tablet 10 mg PO BID PRN (Reason: Anxiety) zolpidem 10 mg tablet 10 mg PO HS atomoxetine 18 mg capsule 18 mg PO DAILY Rx Instructions: PER PT "HAVE NOT STARTED YET". Optimized Folate 1,700 mcg PO DAILY Discontinued lysine 500 mg Tablet 500 mg PO DAILY Discharge Orders: Discharge Order (Routine); Ordered 11/28/22 Ordered By: Roxanna Wetzel Admission Data Admit Date/Time: 11/27/22 01:36 Attending Provider: Roxanna Wetzel Admit Provider: Ren Donald Primary Care Provider: Sara De La Garza Other Providers: hSad Marcus ; Luis Felipe Osuna ; Katie Castro ; Yadira Whipple ; Umu Chase ; Kari Motley ; Wang Balderas ; Kuldeep Hernandez ; Lio Bhat ; Stephen Gleason ; Toney Lovelace ; Samara Cobb ; Anabel Lobo ; Cortney Garcia ; Mariama Szymanski ; Caridad Awad ; Axel Velásquez ; Josh Whitney ; Tatianna Smith ; Leatha Dow Jr ; Ren Donald
[2022-11-28 10:14] LABS: Albumin Level 3.2 gm/dl (3.4-5.0); Bilirubin Direct 0.7 mg/dl (0-0.2); Bilirubin,Total 1.9 mg/dl (0.2-1.0)
[2022-11-28 10:20] LABS: Total Protein 6.4 gm/dl (6.0-8.3)
[2022-11-29 13:37] LABS: HBSAG NON-REACTIVE (NON-REACTIVE); Hepatitis A Antibody IgM NON-REACTIVE (NON-REACTIVE); Hepatitis B Core Antibody IgM NON-REACTIVE (NON-REACTIVE)
[2022-12-01 13:53] LABS: 18KDIGG Band NON-REACTIVE; 23KDIGG Band NON-REACTIVE; 23KDIGM Band REACTIVE; 28KDIGG Band NON-REACTIVE; 30KDIGG Band NON-REACTIVE; 39KDIGG Band NON-REACTIVE; 39KDIGM Band NON-REACTIVE; 41KDIGG Band NON-REACTIVE; 41KDIGM Band REACTIVE; 45KDIGG Band NON-REACTIVE; 58KDIGG Band NON-REACTIVE; 66KDIGG Band NON-REACTIVE; 93KDIGG Band NON-REACTIVE; Lyme Antibodies, WB IgG NEGATIVE (NEGATIVE); Lyme Antibodies, WB IgM POSITIVE (NEGATIVE)
== END 2022-11-28 10:40 | disposition home or self-care (01) ==
LOC: ED 21:12 → INTOOBSV 11-27 01:36 → 2N 11-27 01:36